=== PATIENT | male | born 1955 | race Caucasian/White ===

== ENCOUNTER 2016-02-19 15:44 | Emergency (ER) | payer MEDICARE, OTHER ==
[~2016-02-19] VITALS: Ht 185.4 cm; Wt 120.5 kg
[~2016-02-19 15:44] MED LIST: GLUCOPHAGE1000 MG PO; HCTZ 25MG TAB25 MG PO; HYDROCHLOROTHIA25 MG PO; HYDROCODONE/APAP; JANUMET 500 MG-1 TAB; JANUVIA 100MG100 MG PO; JANUVIA25 MG PO; LANTUS100 U/ML SQ; LIPITOR 10MG10 MG PO; LOPID 600M600 MG/TAB PO; METFORMIN1000 MG PO; NORVASC2.5 MG PO; PERFOROMIS20 MCG/2 M IH; PRAVASTATIN40 MG PO; PREDNISONE20 MG PO; PULMICORT R1 MG/2 ML IH; TOPROL XL 50MG50 MG PO; ZESTRIL40 MG PO; ZITHROMAX500 M2 PO
[2016-02-19 15:47] VITALS: BP 168/78; TEMP 98.1
[2016-02-19] MEDS ORDERED: 00186-0370-20 IH (16:12)
[2016-02-19 16:35] VITALS: PULSE 67
== END 2016-02-19 16:35 | disposition home or self-care (01) ==
LOC: COL.ER 15:44
DX: R22.2 Localized swelling, mass and lump, trunk (principal)

== ENCOUNTER 2017-07-13 11:34 | Emergency (ER) | payer MEDICARE, OTHER ==
[~2017-07-13] VITALS: Ht 182.9 cm; Wt 119.1 kg
[~2017-07-13 11:34] MED LIST changes: +00186-0370-20 IH
[2017-07-13 11:43] VITALS: TEMP 97
[2017-07-13 12:18] LABS: BASO # 0.1 (0.0-0.2); BASO % 0.4 % (0.0-2.0); EOS # 0.2 (0.0-0.7); EOS % 1.6 % (0-4.0); GRAN # 8.7 (1.4-6.5); GRAN % 72.9 % (42.2-75.2); HEMATOCRIT 39.2 % (42.0-52.0); HEMOGLOBIN 13.9 g/dl (13.5-18.0); LYMPH % 16.3 % (20.0-51.0); MEAN CELL VOLUME 89 fl (80.0-100.0); MEAN CORPUSCULAR HEMOGLOBIN 31 pg (27.0-31.0); MEAN CORPUSCULAR HGB CONC 36 g/dl (33.0-37.0); MEAN PLATELET VOLUME 9.6 fl (7.4-10.4); MONO % 8.5 % (1.7-9.3); PLATELET COUNT 255 K/mm3 (130-400); RED BLOOD COUNT 4.42 M/mm3 (4.20-5.60); REDCELL DISTRIBUTION WIDTH-CV 12.1 % (11.5-14.5)
[2017-07-13 12:25] LABS: INR 1.1 (0.8-3.0); PROTHROMBIN TIME 12.3 SECONDS (9.7-12.8)
[2017-07-13 12:38] LABS: ALBUMIN 3.9 gm/dL (3.5-5.0); BILIRUBIN,TOTAL 0.7 mg/dL (0.0-1.0); CALCIUM 9.5 mg/dL (8.4-10.2); CREATININE, serum 1.23 mg/dL (0.66-1.25); POTASSIUM 4.2 mmol/L (3.4-5.0); TOTAL PROTEIN 7.4 gm/dL (6.4-8.2)
[2017-07-13] MEDS ORDERED: LASIX 20MG TABL20 MG PO (12:41)
[2017-07-13] MEDS ORDERED: BASAGLAR K100 UNIT/1 SQ (12:43)
[2017-07-13] MEDS ORDERED: ASPIRIN 81M81 MG/TA2 PO (12:43)
[2017-07-13 12:49] LABS: TROPONIN-I 0.013 ng/mL (0.000-0.034)
[2017-07-13] MEDS ORDERED: CARDIZEM CD 18180 MG PO ×2 (13:56→14:23)
[2017-07-13] MEDS ORDERED: ELIQUIS 5MG PO ×2 (13:56→14:23)
[2017-07-13 14:29] VITALS: BP 122/84; PULSE 100
== END 2017-07-13 14:30 | disposition home or self-care (01) ==
LOC: COL.ER 11:34
PROVIDERS: Emergency Medicine
DX: I48.91 Unspecified atrial fibrillation (principal); J44.9 Chronic obstructive pulmonary disease, unspecified; I10 Essential (primary) hypertension; E78.5 Hyperlipidemia, unspecified; E11.9 Type 2 diabetes mellitus without complications; Z87.891 Personal history of nicotine dependence; Z79.82 Long term (current) use of aspirin; Z79.4 Long term (current) use of insulin

== ENCOUNTER 2017-08-10 07:26 | Day surgery (SDC) | payer MEDICARE, OTHER ==
[2017-08-10] VITALS (8 sets, daily range): BP systolic 103–139; BP diastolic 65–82; PULSE 57–72; TEMP 98.1
[~2017-08-10] VITALS: Ht 182.9 cm; Wt 118.8 kg
[~2017-08-10 07:26] MED LIST changes: +ASPIRIN 81M81 MG/TA2 PO; +BASAGLAR K100 UNIT/1 SQ; +CARDIZEM CD 18180 MG PO; +ELIQUIS 5MG PO; +LASIX 20MG TABL20 MG PO
[2017-08-10 07:50] LABS: INR 1.4 (0.8-3.0); PROTHROMBIN TIME 15.9 SECONDS (9.7-12.8)
[2017-08-10 07:51] LABS: POTASSIUM 5.1 mmol/L (3.4-5.0)
[2017-08-10 08:26] LABS: THYROID STIMULATING HORMONE 2.11 uIU/mL (0.465-4.680)
[2017-08-10] MEDS ORDERED: TIAZAC180 MG PO (09:13)
[2017-08-10] MEDS ORDERED: LASIX 20MG TABL20 MG PO (09:14)
[2017-08-10] MEDS ORDERED: ELIQUIS 5MG PO (09:16)
[2017-08-10] MEDS ORDERED: BASAGLAR K100 UNIT/1 SQ (09:18)
[2017-08-10] MEDS ORDERED: MULTAQ400 MG PO (09:34)
== END 2017-08-10 11:51 | disposition home or self-care (01) ==
LOC: COL.CAR 07:26
PROVIDERS: Internal Medicine Cardiovascular Disease
DX: I48.3 Typical atrial flutter (principal); I48.0 Paroxysmal atrial fibrillation; I10 Essential (primary) hypertension; E78.5 Hyperlipidemia, unspecified; Q23.1 Congenital insufficiency of aortic valve; I07.1 Rheumatic tricuspid insufficiency; E11.9 Type 2 diabetes mellitus without complications; G89.29 Other chronic pain; M54.9 Dorsalgia, unspecified; K21.9 Gastro-esophageal reflux disease without esophagitis; Z79.01 Long term (current) use of anticoagulants; Z79.4 Long term (current) use of insulin; Z87.891 Personal history of nicotine dependence
CPT/HCPCS: J2250; J3010; J7030

== ENCOUNTER 2018-06-27 06:47 | Day surgery (SDC) | payer MEDICARE, OTHER ==
[~2018-06-27] VITALS: Ht 183 cm; Wt 123.4 kg
[~2018-06-27 06:47] MED LIST changes: -LIPITOR 10MG10 MG PO; +LIPITOR 40MG TA40 MG PO; +MULTAQ400 MG PO; +TIAZAC180 MG PO
[2018-06-27 08:02] LABS: INR 1.4 (0.8-3.0)
[2018-06-27 08:09] LABS: POTASSIUM 3.6 mmol/L (3.4-5.0)
[2018-06-27] MEDS ORDERED: TOPROL XL 25MG25 MG PO (08:36)
[2018-06-27 08:41] VITALS: BP 179/114; PULSE 121; TEMP 98.2
[2018-06-27 08:44] LABS: THYROID STIMULATING HORMONE 3.5 uIU/mL (0.465-4.680)
[2018-06-27 08:59] VITALS: BP 131/99; PULSE 122
[2018-06-27 09:30] VITALS: BP 135/83; PULSE 85
[2018-06-27 09:45] VITALS: BP 130/68; PULSE 83
[2018-06-27 10:00] VITALS: BP 140/73; PULSE 82
[2018-06-27 10:15] VITALS: BP 126/76; PULSE 83
[2018-06-27] MEDS ORDERED: HYGROTON 2525 MG/TAB PO (10:56)
== END 2018-06-27 11:23 | disposition home or self-care (01) ==
LOC: COL.CAR 06:47
PROVIDERS: Internal Medicine Cardiovascular Disease
DX: I48.3 Typical atrial flutter (principal); I48.91 Unspecified atrial fibrillation; E11.9 Type 2 diabetes mellitus without complications; I10 Essential (primary) hypertension; G89.29 Other chronic pain; M54.9 Dorsalgia, unspecified; K21.9 Gastro-esophageal reflux disease without esophagitis; Z88.8 Allergy status to other drugs, medicaments and biological substances; Z88.1 Allergy status to other antibiotic agents; Z79.01 Long term (current) use of anticoagulants; Z79.4 Long term (current) use of insulin; Z87.891 Personal history of nicotine dependence; Z82.49 Family history of ischemic heart disease and other diseases of the circulatory system; Z80.9 Family history of malignant neoplasm, unspecified; E78.2 Mixed hyperlipidemia
CPT/HCPCS: J2704; J7030

== ENCOUNTER 2018-07-03 09:19 | Inpatient (IN) | payer MEDICARE, OTHER ==
[~2018-07-03 09:19] MED LIST changes: -ASPIRIN 81M81 MG/TA2 PO; +ASPIRIN E.C. 8181 MG PO; +HYGROTON 2525 MG/TAB PO; +TOPROL XL 25MG25 MG PO
[2018-07-03 09:52] VITALS: BP 130/74; PULSE 56; TEMP 98.3
[2018-07-03 11:04] LABS: BASO # 0.1 (0.0-0.2); BASO % 0.6 % (0.0-2.0); EOS # 0.3 (0.0-0.7); GRAN # 7.6 (1.4-6.5); GRAN % 72.6 % (42.2-75.2); HEMATOCRIT 40.2 % (42.0-52.0); HEMOGLOBIN 13.3 g/dl (13.5-18.0); LYMPH # 1.6 (1.2-3.4); LYMPH % 14.9 % (20.0-51.0); MEAN CELL VOLUME 93 fl (80.0-100.0); MEAN CORPUSCULAR HEMOGLOBIN 31 pg (27.0-31.0); MEAN CORPUSCULAR HGB CONC 33 g/dl (33.0-37.0); MEAN PLATELET VOLUME 10.5 fl (7.4-10.4); MONO # 0.9 (0.1-0.6); MONO % 8.4 % (1.7-9.3); PLATELET COUNT 275 K/mm3 (130-400); RED BLOOD COUNT 4.31 M/mm3 (4.20-5.60); REDCELL DISTRIBUTION WIDTH-CV 12.4 % (11.5-14.5)
[2018-07-03 11:14] LABS: INR 1.6 (0.8-3.0); PROTHROMBIN TIME 18.6 SECONDS (9.7-12.8)
[2018-07-03 11:20] LABS: ALBUMIN 3.8 gm/dL (3.5-5.0); BILIRUBIN,TOTAL 0.6 mg/dL (0.0-1.0); CALCIUM 8.9 mg/dL (8.4-10.2); CREATININE, serum 1.93 (0.66-1.25); MAGNESIUM 1.7 mg/dL (1.6-2.3); POTASSIUM 4.5 mmol/L (3.4-5.0); TOTAL PROTEIN 7.1 gm/dL (6.4-8.2)
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
[2018-07-03 15:23] VITALS: BP 174/94; PULSE 49; TEMP 98.1
--- NOTE | 2018-07-03 19:29 | NUR ---
Report given to oncoming shift. Went for bedside report and patient was observed to be laying on left side with eyes closed. Personal items and call light is within reach.
[2018-07-03 21:03] VITALS: BP 183/78; PULSE 51; TEMP 97.7
[2018-07-03 23:27] VITALS: BP 147/49; PULSE 55; TEMP 98
--- NOTE | 2018-07-03 23:45 | NUR ---
Patient assessed around 2029. Denies having pain and discomfort. Alert and oriented, and able to make needs known. Patient is completely blind in right eye, and can only see peripheral vision in left eye. Oriented to call light, bed controls, TV controls, etc. Telemetry intact. HRR. LS CTA. Denies SOB and dyspnea. LLE with 1+ edema. Junior hose to LLE. Old scarring to LLE, as well as old graft site to right forearm. Peripheral INT to left hand flushed. Site is patent, and without redness, warmth, swelling, and pain. Voices no needs or concerns at this time. Resting in bed with eyes closed. at bedside. Call light is within reach.
[2018-07-04 04:09] VITALS: BP 164/71; PULSE 63; TEMP 97.8
--- NOTE | 2018-07-04 05:07 | NUR ---
Patient has been resting in bed with eyes closed most of the night so far. Has voiced no needs or concerns. Call light is within reach.
[2018-07-04 07:22] LABS: BASO # 0.1 (0.0-0.2); BASO % 0.6 % (0.0-2.0); EOS # 0.4 (0.0-0.7); GRAN # 6.6 (1.4-6.5); GRAN % 72.1 % (42.2-75.2); HEMATOCRIT 38.6 % (42.0-52.0); HEMOGLOBIN 12.8 g/dl (13.5-18.0); LYMPH # 1.3 (1.2-3.4); MEAN CELL VOLUME 93 fl (80.0-100.0); MEAN CORPUSCULAR HEMOGLOBIN 31 pg (27.0-31.0); MEAN CORPUSCULAR HGB CONC 33 g/dl (33.0-37.0); MEAN PLATELET VOLUME 10.3 fl (7.4-10.4); MONO # 0.8 (0.1-0.6); MONO % 8.7 % (1.7-9.3); PLATELET COUNT 258 K/mm3 (130-400); RED BLOOD COUNT 4.16 M/mm3 (4.20-5.60); REDCELL DISTRIBUTION WIDTH-CV 12.4 % (11.5-14.5)
[2018-07-04 07:35] LABS: CALCIUM 8.5 mg/dL (8.4-10.2); CREATININE, serum 1.73 (0.66-1.25); MAGNESIUM 1.8 mg/dL (1.6-2.3); POTASSIUM 4.5 mmol/L (3.4-5.0)
--- NOTE | 2018-07-04 08:16 | NUR ---
Patient is sitting up on side of bed eating breakfast. Asked if he was having any pain and he stated no more than usual, did offer pain medication and he stated he does not take anything, just lets the stiffness and pain work itself out. No other needs verbalized when asked. Personal items and call light is within reach.
--- NOTE | 2018-07-04 09:37 | NUR ---
Initial visit; Patient thanked Wiper Blender for stopping and wishing him well and God's blessings.
[2018-07-04 12:36] VITALS: BP 198/96; PULSE 68; TEMP 98.5
--- NOTE | 2018-07-04 13:52 | NUR ---
Noted blood pressure to be 198/96, paged call to Dr. Haas's nurse to notify. New order noted for amlodipine.
--- NOTE | 2018-07-04 16:39 | NUR ---
SW met with patient to discuss discharge planning. Patient lives independently at home with his . Patient's PCP is Dr Rosales and he obtains prescriptions from [facility]. Patient has a cane at home but does not use it often and he does not use any home health services. Patient does not have a DPOA and is not interested in obtaining one at this time. SW does not anticipate any discharge needs.
[2018-07-04 16:44] VITALS: BP 173/158; PULSE 102; TEMP 97.6
[2018-07-04 16:52] VITALS: BP 168/94
--- NOTE | 2018-07-04 18:23 | NUR ---
Patient sitting up on couch, finished up supper. Denies having any new pain. Evening medication administered. Did request diet coke. Call light and personal items are within reach.
--- NOTE | 2018-07-04 19:13 | NUR ---
Called Dr. Mccray regarding blood pressure for this evening of 168/94 manually. He verbalized he was not concerned with the the pressure.
[2018-07-04 19:19] VITALS: BP 165/81; PULSE 67; TEMP 98.7
--- NOTE | 2018-07-04 21:10 | NUR ---
pt resting in bed A+Ox4. reports pain 2/10- denies needs for interventions. shift assessment complete. pt reports no needs at this time. call light inreach
[2018-07-04 23:39] VITALS: BP 170/70; PULSE 57; TEMP 98.6
--- NOTE | 2018-07-04 23:49 | NUR ---
pt O2 sat drops when sleeping to 84-89%- placed pt on 1L via NC. no c/o SOA. no needs at this time. call light in reach
[2018-07-05 04:23] VITALS: BP 165/68; PULSE 61; TEMP 98.3
--- NOTE | 2018-07-05 05:14 | NUR ---
PT RESTED IN BED DURING NIGHT. REPORTED PAIN TO BE MANAGABLE WITHOUT INTERVENTIONS. PT ON 1L VIA NC- D/T SAT DROPPING WHEN SLEEPING TO 80s. PT CONVERTED TO AFIB AT 0330- CARDIOLOGY NOTIFIED. NO NEEDS AT THIS TIME. CALL LIGHT IN REACH
[2018-07-05 07:03] LABS: BASO # 0.1 (0.0-0.2); BASO % 0.6 % (0.0-2.0); EOS # 0.3 (0.0-0.7); EOS % 3.4 % (0-4.0); GRAN # 7.2 (1.4-6.5); GRAN % 73.6 % (42.2-75.2); HEMATOCRIT 43.1 % (42.0-52.0); LYMPH # 1.4 (1.2-3.4); LYMPH % 14.4 % (20.0-51.0); MEAN CELL VOLUME 94 fl (80.0-100.0); MEAN CORPUSCULAR HEMOGLOBIN 30 pg (27.0-31.0); MEAN CORPUSCULAR HGB CONC 33 g/dl (33.0-37.0); MEAN PLATELET VOLUME 10.2 fl (7.4-10.4); MONO # 0.7 (0.1-0.6); MONO % 7.6 % (1.7-9.3); PLATELET COUNT 323 K/mm3 (130-400); REDCELL DISTRIBUTION WIDTH-CV 12.5 % (11.5-14.5)
--- NOTE | 2018-07-05 07:23 | NUR ---
report given to JAYLEEN Corrales. pt reports no needs
[2018-07-05 07:24] LABS: CALCIUM 9.1 mg/dL (8.4-10.2); CREATININE, serum 1.77 (0.66-1.25); MAGNESIUM 1.8 mg/dL (1.6-2.3)
[2018-07-05 08:30] VITALS: BP 175/84; PULSE 78; TEMP 98.5
[2018-07-05] MEDS ORDERED: BETAPACE 80MG80 MG PO (09:03)
[2018-07-05] MEDS ORDERED: NORVASC 10MG10 MG PO (09:04)
--- NOTE | 2018-07-05 09:06 | NUR ---
Patient sitting in bed upon entry. Patient is pleasant and cooperative with cares. Lung sounds clear, LLL diminished. Heart RRR. Denies chest pain, dizziness, SOB, N/V. radial pulses strong bilaterally. Patient blind in left eye and semi blind in right eye. Patient able to perform cares on own mostly. INT IV is patent. Dr. miller in to visit with patient. Patient is being discharged today. patient will call for ride. Denies other needs at this time. VSS. Call light within reach.
--- NOTE | 2018-07-05 11:44 | NUR ---
Patient discharging. Discharge instructions reviewed and discussed. Patient verbalizes understanding. All questions answered. LH INT IV discontinued, catheter tip intact, no complications. Denies other needs. Escorted out via wheelchair by ora Lewis.
== END 2018-07-05 11:48 | disposition home or self-care (01) | DRG 309 ==
LOC: MEDICAL 09:19
PROVIDERS: Nurse Practitioner; ADMIT Internal Medicine Cardiovascular Disease
DX: I48.0 Paroxysmal atrial fibrillation (principal); Q23.1 Congenital insufficiency of aortic valve; E11.9 Type 2 diabetes mellitus without complications; I48.92 Unspecified atrial flutter; I10 Essential (primary) hypertension; G89.29 Other chronic pain; E78.2 Mixed hyperlipidemia; M54.9 Dorsalgia, unspecified; K21.9 Gastro-esophageal reflux disease without esophagitis; H54.7 Unspecified visual loss; Z79.01 Long term (current) use of anticoagulants; Z79.4 Long term (current) use of insulin; Z87.891 Personal history of nicotine dependence
CPT/HCPCS: J1815

== ENCOUNTER 2018-08-01 11:55 | Inpatient (IN) | payer MEDICARE, OTHER ==
[~2018-08-01] VITALS: Ht 185.4 cm; Wt 128.8 kg
[2018-08-01] VITALS (482 sets, daily range): BP systolic 83–180; BP diastolic 45–105; PULSE 56–62; TEMP 98.8–99; O2SAT 69–100
[~2018-08-01 11:55] MED LIST changes: +BETAPACE 80MG80 MG PO; +NORVASC 10MG10 MG PO
[2018-08-01 12:24] LABS: HEMATOCRIT 45.3 % (42.0-52.0); HEMOGLOBIN 14.8 g/dl (13.5-18.0); MEAN CELL VOLUME 95 fl (80.0-100.0); MEAN CORPUSCULAR HEMOGLOBIN 31 pg (27.0-31.0); MEAN CORPUSCULAR HGB CONC 33 g/dl (33.0-37.0); MEAN PLATELET VOLUME 10.3 fl (7.4-10.4); PLATELET COUNT 385 K/mm3 (130-400); RED BLOOD COUNT 4.79 M/mm3 (4.20-5.60); REDCELL DISTRIBUTION WIDTH-CV 13.8 % (11.5-14.5)
[2018-08-01 12:26] LABS: INR 1.7 (0.8-3.0); PROTHROMBIN TIME 20.4 SECONDS (9.7-12.8)
[2018-08-01 12:32] LABS: ALBUMIN 3.8 gm/dL (3.5-5.0); BILIRUBIN,TOTAL 0.7 mg/dL (0.0-1.0); CALCIUM 8.6 mg/dL (8.4-10.2); CREATININE, serum 1.99 (0.66-1.25); POTASSIUM 5.1 mmol/L (3.4-5.0); TOTAL PROTEIN 7.4 gm/dL (6.4-8.2)
[2018-08-01 12:39] LABS: ARTERIAL BLD GAS O2 SATURATION 93.8 % (92-100); ARTERIAL BLD GAS TCO2 CT 34.6; ARTERIAL BLOOD GAS BASE EXCESS -1.3 (-2-2); ARTERIAL BLOOD GAS HCO3 31.5 meq/L (22-26)
[2018-08-01 12:41] LABS: ARTERIAL BLOOD GAS pH 7.12 (7.35-7.45)
[2018-08-01 12:42] LABS: ARTERIAL BLOOD GAS PCO2 99.2 mmHg (35-45)
[2018-08-01 12:44] LABS: TROPONIN-I 0.022 ng/mL (0.000-0.035)
--- NOTE | 2018-08-01 13:15 | NUR ---
SW was called to the ED for a code red. The pt's was in the ED waiting room. SW provided support to the . Pt to go to ICU05. There are no additional needs at this time.
--- NOTE | 2018-08-01 14:09 | NUR ---
Pt admitted to ICU bed 5 from ED. Pt arrived via stretcher and placed on telemetry monitor upon arrival to unit. Vitals stable upon arrival. Dr. Hendricks and Dr. Hung in unit for Pt arrival.
[2018-08-01 14:17] LABS: ARTERIAL BLD GAS O2 SATURATION 95.8 % (92-100); ARTERIAL BLD GAS TCO2 CT 26.2; ARTERIAL BLOOD GAS BASE EXCESS -2.5 (-2-2); ARTERIAL BLOOD GAS HCO3 24.6 meq/L (22-26); ARTERIAL BLOOD GAS PCO2 51.5 mmHg (35-45); ARTERIAL BLOOD GAS PO2 89.8 mmHg (80-100)
--- NOTE | 2018-08-01 14:23 | NUR ---
Versed discontinued per physician order. Switching to Propofol.
--- NOTE | 2018-08-01 14:24 | NUR ---
Initial visit; Patient brought to ICU Room. Athletics Director spoke with his and daughter and eventually introduced them to the Nurse Practitioner who took them to another room to explain patient's physical condition.
--- NOTE | 2018-08-01 15:00 | NUR ---
Admission assessment complete at this time. Plan of care reviewed at bedside with family. Pt responds to verbal stimuli easily and follows commands. Denies pain or any other discomfort. Additional time taken to address any other needs or concerns of family. Bed in low position, call light within reach. Will continue to monitor.
--- NOTE | 2018-08-01 15:07 | NUR ---
CHANEL met with the patient and his Santa to discuss a discharge plan. Due to the pt's condition Santa answered assessment questions. The pt lives in [place] with Santa. The pt has a cane he uses occasionally. The pt is independent with ADLs. The pt's PCP is Dr. Rosales and receives his medications from [facility]. Pt may require a medication voucher upon discharge. The pt does not have advanced directives in the EMR. CHANEL to revisit DPOA-HC once pt condition changes. CHANEL will continue to follow to assist with any discharge recommendations. [place]oca () cell #
[2018-08-01 16:23] LABS: ARTERIAL BLD GAS TCO2 CT 26.4; ARTERIAL BLOOD GAS BASE EXCESS 0.2 (-2-2); ARTERIAL BLOOD GAS HCO3 25.1 meq/L (22-26); ARTERIAL BLOOD GAS PCO2 41.6 mmHg (35-45); ARTERIAL BLOOD GAS PO2 71.8 mmHg (80-100)
--- NOTE | 2018-08-01 16:32 | NUR ---
Heparin gtt intiated per orders at this time. Max bolus of 10,000 units given per order. Gtt intiated at 2300 units/hr. Doses verifed with Snow Navarro RN.
[2018-08-01 16:36] LABS: PARTIAL THROMBOPLASTIN TIME 37.7 SECONDS (26.0-37.0)
--- NOTE | 2018-08-01 17:00 | NUR ---
Pt awakens easily to voice and follows all directions and commands. Pt recently intubated with recent sedation intiation. Multiple sedation changes have been performed prior to current settings. Pt is resting comfortably and is well below the RASS goal of -2 to -3. No further sedation vacation performed at this time. Will continue to monitor for sedation level changes and intervene accordingly per orders.
--- NOTE | 2018-08-01 17:48 | NUR ---
Heparin Xa elevated critically at 1.16. Holding gtt for two hours per protocol and will recheck hep Xa level at 194.
[2018-08-01] MEDS ORDERED: BETAPACE 80MG80 MG PO (18:53)
--- NOTE | 2018-08-01 19:15 | NUR ---
Bedside report received from JAYLEEN Saldaña. All lines and medications confirmed. Transfer of care at this time.
--- NOTE | 2018-08-01 19:15 | NUR ---
Bedside report given to JAYLEEN Cunningham.
--- NOTE | 2018-08-01 20:00 | NUR ---
Patient appears to resting comfortably on the ventilator. No signs of distress. Asked patient if he is having any pain, he shakes his head no. Patient opens eyes when asked and squeezes hands, following commands. Assessment complete. Patient's lungs are clear in the upper lobes with diminished bases. Ventilator tube placement checked. HR and rhythm are regular and bradycardic, Normal S1 and S2 heard. Bowel sounds are active x4. OG placement confirmed by auscultation and aspiration of brown gastric contents. Patient has +3 pitting edema in the lower extremities and +1 in the upper. Patient is producing a small amount of yellow cloudy urine. Sample to be collected. Patient's , Santa, is at the bedside. Discussed his condition with her and what numbers we are monitoring on the ventilator as well as the process for the sedation vacation in the morning with CPAP trial. She is understanding, but also emotional. Patient has no further needs at this time. Will continue to monitor. Call light within reach.
[2018-08-01 21:24] LABS: COLLECTION METHOD CATHETER
[2018-08-01 21:44] LABS: AMORPHOUS CRYSTAL Present /uL; MUCOUS Present /lpf; PH 5 (5-8); SQUAMOUS EPITHELIAL 0-2 /hpf; URINE APPEARANCE Turbid; URINE BACTERIA Rare /hpf; URINE BILIRUBIN Negative (NEGATIVE); URINE BLOOD 2+ (NEGATIVE); URINE COLOR Amber; URINE GLUCOSE 1+ (NEGATIVE); URINE KETONE Trace (NEGATIVE); URINE LEUKOCYTE ESTERASE Negative (NEGATIVE); URINE NITRATE Negative (NEGATIVE); URINE PROTEIN(semi-quant) 3+ (NEGATIVE); URINE RBC >50 /hpf; URINE UROBILINOGEN Negative (NEGATIVE)
[2018-08-01 21:57] LABS: PARTIAL THROMBOPLASTIN TIME 37.1 SECONDS (26.0-37.0)
--- NOTE | 2018-08-01 22:30 | NUR ---
Patient's O2 sats have been increasing on 60% FIO2, decreased to 55% at this time. O2 sat holding between 92-94%
[2018-08-02] VITALS (832 sets, daily range): BP systolic 103–147; BP diastolic 52–73; PULSE 54–70; TEMP 97.5–99; O2SAT 80–100
--- NOTE | 2018-08-02 | NUR ---
Patient sleeps between disturbances. Appears to be resting comfortably on the vent, no signs of distress. RT Holly has been titrating down the FIO2. Assessment complete. No changes from previous exam. Patient's vitals have remained stable, he still is bradycardic. No resdiual aspirated through OG. Placement confirmed. Patient shakes his head no when asked if he is in any pain. Patient wants his feet elevated, pillow placed under feet with heels floated. Patient's urine output has started to decrease. Will notify EICU. Patient has no further needs at this time. Will continue to monitor. Call light within reach.
--- NOTE | 2018-08-02 04:00 | NUR ---
Patient continues to rest peacefully on the vent. Patient continues to deny any pain. Vitals have remained stable. Patient answers questions to the best of his abilities to include spelling out words with his hand. Assessment complete. No changes from previous exams. Patient has no further needs at this time. Will continue to monitor. Call light within reach.
[2018-08-02 04:02] LABS: HEMOGLOBIN 12.4 g/dl (13.5-18.0); MEAN CELL VOLUME 94 fl (80.0-100.0); MEAN CORPUSCULAR HEMOGLOBIN 31 pg (27.0-31.0); MEAN CORPUSCULAR HGB CONC 33 g/dl (33.0-37.0); MEAN PLATELET VOLUME 9.8 fl (7.4-10.4); PLATELET COUNT 266 K/mm3 (130-400); RED BLOOD COUNT 4.05 M/mm3 (4.20-5.60); REDCELL DISTRIBUTION WIDTH-CV 13.7 % (11.5-14.5)
[2018-08-02 04:11] LABS: INR 1.4 (0.8-3.0); PROTHROMBIN TIME 16.1 SECONDS (9.7-12.8)
[2018-08-02 04:14] LABS: BILIRUBIN,TOTAL 0.6 mg/dL (0.0-1.0); CALCIUM 8.3 mg/dL (8.4-10.2); CREATININE, serum 2.77 (0.66-1.25); MAGNESIUM 1.9 mg/dL (1.6-2.3); PHOSPHOROUS 4.8 mg/dL (2.5-4.5); POTASSIUM 4.5 mmol/L (3.4-5.0); TOTAL PROTEIN 5.9 gm/dL (6.4-8.2)
[2018-08-02 04:14] LABS: ARTERIAL BLD GAS O2 SATURATION 90.4 % (92-100); ARTERIAL BLD GAS TCO2 CT 22.1; ARTERIAL BLOOD GAS BASE EXCESS -3.2 (-2-2); ARTERIAL BLOOD GAS PCO2 35.1 mmHg (35-45); ARTERIAL BLOOD GAS PO2 60.3 mmHg (80-100)
[2018-08-02 04:19] LABS: BAND 7 % (0-10); LYMPHOCYTE 5 % (20.0-51.0); NEUTROPHILS 86 % (42.0-75.2); PLATELET ESTIMATE NORMAL (NORMAL)
--- NOTE | 2018-08-02 05:00 | NUR ---
Sedation vacation started at this time. Fentanyl and propofol doses cut in half.
--- NOTE | 2018-08-02 05:25 | NUR ---
WEANING TRAIL ON PS 10, PEEP 5, FIO2 45% starteed @ 0515. VT 523, RR14, RBI25, PEAK PRESSURE 16, HR65, GPJ152% PAITIENT IS RESTING COMFORTABLY AND HAS NO SIGNS OF DISTRESS.
--- NOTE | 2018-08-02 06:55 | NUR ---
Patient's , Santa, calls at this time for an update. Provided patient's status and how he has improved over night. She says she will be here between [id number]. Let patient know when she plans on being here.
--- NOTE | 2018-08-02 07:10 | NUR ---
Bedside report given to JAYLEEN Saldaña and JAYLEEN Trujillo. All lines and medications reviewed. Transfer of care at this time.
--- NOTE | 2018-08-02 08:00 | NUR ---
Shift assessment complete at this time. Plan of care reviewed at bedside with patient. Additional time taken to address any other needs or concerns. Vitals stable at this time. Pt alert and calm on ventilator and minimal sedation. Currently in pressure support CPAP setting. Follows commands and direction easily. Denies pain or any other discomfort. Bed in low position, call light within reach, will continue to monitor.
--- NOTE | 2018-08-02 08:50 | NUR ---
Propofol and Fentanyl gtts stopped per direction of Dr. Hendricks for potential extubation.
[2018-08-02 09:27] LABS: ARTERIAL BLD GAS O2 SATURATION 92.7 % (92-100); ARTERIAL BLD GAS TCO2 CT 20.3; ARTERIAL BLOOD GAS BASE EXCESS -6.5 (-2-2); ARTERIAL BLOOD GAS HCO3 19.1 meq/L (22-26); ARTERIAL BLOOD GAS PCO2 38.6 mmHg (35-45); ARTERIAL BLOOD GAS pH 7.31 (7.35-7.45)
--- NOTE | 2018-08-02 09:48 | NUR ---
Pt extubated at this time to Bi-Pap. Pt tolerated extubation well with no complaints or concerns raised. Will continue to monitor.
--- NOTE | 2018-08-02 11:29 | NUR ---
SW followed up with patient about DPOA status now that he is intubated. Patient reports that he does not have anything in writing they in the process of working on it. Patient states that his Santa is to make decisions on his behalf. This is verbal acknowledgment
--- NOTE | 2018-08-02 11:48 | NUR ---
EXTUBATED AT 10:00. PER DR. BENNETT ORDER. SUCTIONED PRE AND POST, BILATERAL BREATH SOUNDS CLEAR AND EQUAL. NO STRIDOR. NO SIGNS OF DISTRESS. PT PLACED ON BIPAP PER MD ORDER.
--- NOTE | 2018-08-02 12:00 | NUR ---
Shift reassessment complete at this time. Changes from previous assessment noted in charting. Vitals stable at this time. Pt denies pain or any other discomfort. Bed in low position, call light within reach, will continue to monitor.
[2018-08-02 12:36] LABS: ARTERIAL BLD GAS O2 SATURATION 94.5 % (92-100); ARTERIAL BLD GAS TCO2 CT 23.1; ARTERIAL BLOOD GAS BASE EXCESS -4.2 (-2-2); ARTERIAL BLOOD GAS HCO3 21.8 meq/L (22-26); ARTERIAL BLOOD GAS PCO2 43.5 mmHg (35-45); ARTERIAL BLOOD GAS PO2 81.9 mmHg (80-100); ARTERIAL BLOOD GAS pH 7.32 (7.35-7.45)
--- NOTE | 2018-08-02 12:50 | NUR ---
Hep Xa 0.85. Holding gtt for one hour and resuming at 200 units/hr decreased rate. Recheck Xa 6 hours after restart.
--- NOTE | 2018-08-02 16:00 | NUR ---
Shift reassessment complete at this time. No changes from previous assessment. Vitals stable at this time. Pt denies pain or any other discomfort. Bed in low position, call light within reach, will continue to monitor.
--- NOTE | 2018-08-02 19:41 | NUR ---
Bedside report given to JAYLEEN Pickett.
--- NOTE | 2018-08-02 23:37 | NUR ---
Patient assessment completed and charted at this time, please see documentation for details. Patient resting in bed, at bedside. All questions and concerns addressed at this time, will continue to monitor.
[2018-08-03] VITALS (515 sets, daily range): BP systolic 117–138; BP diastolic 59–75; PULSE 55–68; TEMP 97.4–97.8; O2SAT 76–100
[2018-08-03 04:10] LABS: BASO % 0.1 % (0.0-2.0); GRAN # 14.8 (1.4-6.5); GRAN % 92.8 % (42.2-75.2); HEMATOCRIT 38.5 % (42.0-52.0); HEMOGLOBIN 12.5 g/dl (13.5-18.0); LYMPH # 0.4 (1.2-3.4); LYMPH % 2.6 % (20.0-51.0); MEAN CELL VOLUME 95 fl (80.0-100.0); MEAN CORPUSCULAR HEMOGLOBIN 31 pg (27.0-31.0); MEAN CORPUSCULAR HGB CONC 33 g/dl (33.0-37.0); MONO # 0.6 (0.1-0.6); MONO % 3.9 % (1.7-9.3); PLATELET COUNT 308 K/mm3 (130-400); RED BLOOD COUNT 4.06 M/mm3 (4.20-5.60)
[2018-08-03 04:14] LABS: INR 1.2 (0.8-3.0); PROTHROMBIN TIME 14.6 SECONDS (9.7-12.8)
[2018-08-03 04:21] LABS: ALBUMIN 3.2 gm/dL (3.5-5.0); BILIRUBIN,TOTAL 0.4 mg/dL (0.0-1.0); CALCIUM 7.9 mg/dL (8.4-10.2); CREATININE, serum 3.24 (0.66-1.25); MAGNESIUM 2.1 mg/dL (1.6-2.3); PHOSPHOROUS 5.4 mg/dL (2.5-4.5); POTASSIUM 5.2 mmol/L (3.4-5.0); TOTAL PROTEIN 6.1 gm/dL (6.4-8.2)
[2018-08-03 04:32] LABS: TROPONIN-I 0.012 ng/mL (0.000-0.035)
[2018-08-03 05:33] LABS: ARTERIAL BLOOD GAS BASE EXCESS -5.4 (-2-2); ARTERIAL BLOOD GAS HCO3 20.7 meq/L (22-26); ARTERIAL BLOOD GAS PCO2 42.6 mmHg (35-45); ARTERIAL BLOOD GAS PO2 103.2 mmHg (80-100)
--- NOTE | 2018-08-03 07:10 | NUR ---
Report received from Piyush CLEMENS and care resumed.
--- NOTE | 2018-08-03 09:00 | NUR ---
Dr Tinoco in to see pt at this time.
--- NOTE | 2018-08-03 12:42 | NUR ---
Report called to Moustapha CLEMENS and patient taken by wheelchair with chart and belongings to room 318.
--- NOTE | 2018-08-03 13:00 | NUR ---
Patient arrived to room 318 by wheelchair from ICU at this time, he is alert/ and oriented, denies pain, blood sugar was checked and insulin givn prior to coming to the Medical floor, his lunch is ordered, vital signs stable, denies any needs at this time, call light in reach
--- NOTE | 2018-08-03 13:08 | NUR ---
Patient's called to report stated that due to his blindness he can not see the call button and needed to use the rest room. SW contacted patient's nurse to inform them. 's phone number is [phone] Santa.
[2018-08-03 14:10] LABS: HIV QUANTITATIVE VIRAL LOAD Undetected (())
--- NOTE | 2018-08-03 19:13 | NUR ---
Pt resting in bed. Family at bedside. No distress noted. Respirations even and unlabored. Lungs clear to auscultation, bases diminished bilaterally. Pt denies SOB. Pt is not wearing his O2. Spo2 is 82% on RA. O2 @5L reapplied. Spo2 is 93% on O2@5L. Pt reports generalized pain that he states he "lives with all the time". Edema noted to BLE-2+. Pt is A&O. Pt is partially blind but is able to see some shapes and shadows. No needs noted. Will continue to monitor.
--- NOTE | 2018-08-03 23:20 | NUR ---
RT at bedside to apply BiPAP for sleep. Pt denies needs. Reglan given via PICC line. PICC gives good blood return in both ports and flushing well.
[2018-08-04 04:02] VITALS: BP 152/70; PULSE 83; TEMP 97.4
--- NOTE | 2018-08-04 05:20 | NUR ---
AM labs drawn via patients PICC line. PICC has great blood return. Pt has been awake for approximately 1 hour. He has no complaints this AM.
[2018-08-04 06:47] LABS: BASO % 0.1 % (0.0-2.0); GRAN # 14.7 (1.4-6.5); GRAN % 94.6 % (42.2-75.2); HEMATOCRIT 38.1 % (42.0-52.0); HEMOGLOBIN 12.3 g/dl (13.5-18.0); LYMPH # 0.3 (1.2-3.4); LYMPH % 1.7 % (20.0-51.0); MEAN CELL VOLUME 95 fl (80.0-100.0); MEAN CORPUSCULAR HEMOGLOBIN 31 pg (27.0-31.0); MEAN CORPUSCULAR HGB CONC 32 g/dl (33.0-37.0); MEAN PLATELET VOLUME 10.3 fl (7.4-10.4); MONO # 0.5 (0.1-0.6); PLATELET COUNT 304 K/mm3 (130-400); RED BLOOD COUNT 4.02 M/mm3 (4.20-5.60); REDCELL DISTRIBUTION WIDTH-CV 13.8 % (11.5-14.5)
[2018-08-04 06:55] LABS: INR 1.1 (0.8-3.0); PROTHROMBIN TIME 12.8 SECONDS (9.7-12.8)
[2018-08-04 07:00] LABS: ALBUMIN 3.2 gm/dL (3.5-5.0); BILIRUBIN,TOTAL 0.4 mg/dL (0.0-1.0); CALCIUM 7.8 mg/dL (8.4-10.2); CREATININE, serum 3.39 (0.66-1.25); PHOSPHOROUS 6.5 mg/dL (2.5-4.5); POTASSIUM 5.1 mmol/L (3.4-5.0)
[2018-08-04 08:57] LABS: ARTERIAL BLD GAS TCO2 CT 21.1; ARTERIAL BLOOD GAS BASE EXCESS -6.9 (-2-2); ARTERIAL BLOOD GAS HCO3 19.8 meq/L (22-26); ARTERIAL BLOOD GAS PCO2 43.8 mmHg (35-45); ARTERIAL BLOOD GAS PO2 83.7 mmHg (80-100); ARTERIAL BLOOD GAS pH 7.27 (7.35-7.45)
[2018-08-04 09:04] VITALS: BP 138/64; PULSE 70; TEMP 98.4
[2018-08-04 11:14] VITALS: BP 139/63; PULSE 69; TEMP 97.9
[2018-08-04 16:04] VITALS: BP 148/60; PULSE 74; TEMP 97.5
[2018-08-04 20:04] VITALS: BP 147/67; PULSE 76; TEMP 97.4
--- NOTE | 2018-08-04 20:30 | NUR ---
Pt sitting on edge of bed visiting with staff. Voices no c/o pain, SOA. LLE with darrick hose on and with 3+ edema. RLE with 1+ edema. PICC line intact to upper R arm. O2 on at 4L/NC. Call light withn reach.
[2018-08-04 23:24] VITALS: BP 140/59; PULSE 67; TEMP 98.1
[2018-08-05 00:12] VITALS: BP 140/59; PULSE 67; TEMP 98.1
--- NOTE | 2018-08-05 05:00 | NUR ---
Patient resting in bed. Denies needs. Call light in reach.
[2018-08-05 06:00] LABS: HEMATOCRIT 37.3 % (42.0-52.0); HEMOGLOBIN 12.2 g/dl (13.5-18.0); MEAN CELL VOLUME 94 fl (80.0-100.0); MEAN CORPUSCULAR HEMOGLOBIN 31 pg (27.0-31.0); MEAN CORPUSCULAR HGB CONC 33 g/dl (33.0-37.0); MEAN PLATELET VOLUME 10.2 fl (7.4-10.4); PLATELET COUNT 276 K/mm3 (130-400); RED BLOOD COUNT 3.95 M/mm3 (4.20-5.60); REDCELL DISTRIBUTION WIDTH-CV 13.7 % (11.5-14.5)
[2018-08-05 06:07] LABS: CALCIUM 7.9 mg/dL (8.4-10.2); CREATININE, serum 3.27 (0.66-1.25); POTASSIUM 5.5 mmol/L (3.4-5.0)
[2018-08-05 06:52] LABS: BAND 1 % (0-10); LYMPHOCYTE 3 % (20.0-51.0); NEUTROPHILS 94 % (42.0-75.2)
[2018-08-05 06:55] LABS: PLATELET ESTIMATE NORMAL (NORMAL)
--- NOTE | 2018-08-05 07:43 | NUR ---
Pt had BS of 402, Janet notified and insulin given. Rest of night uneventful. Report given to JAYLEEN Lovett.
--- NOTE | 2018-08-05 08:00 | NUR ---
PATIENT IS A&O AND SITTING AT BEDSIDE. PATIENT IS BLIND, BREAKFAST TRAY ORDERED FOR HIM. PATIENT DENIES SOB OR CHEST PAIN UPON ASSESSMENT. 02 @ 1L PER NC WITH SATS IN 90'S. PATIENT RECENTLY TOOK OFF HIS BI-PAP FROM LAST NIGHT. HR IN 50-60'S ON TELE. HX OF PACER. LUNG HODGE DEMINISHED. NOTED HIGH BS LIKELY DUE TO SOLUMEDROL. AM BS OF 305, SSI GIVEN. AM MEDS GIVEN. HEAD TO TOE ASSESSMENT COMPLETE. NO OTHER NEEDS AT THIS TIME.
[2018-08-05 08:45] VITALS: BP 150/85; PULSE 63; TEMP 97.4
[2018-08-05 11:06] VITALS: BP 152/69; PULSE 69; TEMP 97.5
--- NOTE | 2018-08-05 15:30 | NUR ---
PATIENT AMBULATING IN HALLWAYS WITH PT. SEE PT NOTES.
[2018-08-05 16:01] VITALS: BP 149/70; PULSE 74; TEMP 97.9
--- NOTE | 2018-08-05 17:38 | NUR ---
Home health is being recommended for the pt. CHANEL provided a Medicare.gov list of agencies that serve the [facility]. The pt would like to discuss the list with his , Santa. CHANEL will continue to follow.
[2018-08-05 19:55] VITALS: BP 154/72; PULSE 82; TEMP 97.2
--- NOTE | 2018-08-05 21:43 | NUR ---
PT AWAKE AND SITTING ON EDGE OF BED. O2 AT 4L/NC. DENIES PAIN, SOA. PICC LINES FLUSHED. LLE WITH MEL HOSE ON AND 2-3+ EDEMA. RLE WITH 1+ EDEMA. TELE ON WITH HR 70'S.
[2018-08-06 00:13] LABS: CREATININE, serum 2.98 (0.66-1.25)
[2018-08-06 00:15] LABS: FRACTIONAL EXCRETION OF NA+ 1.7 %
[2018-08-06 04:33] VITALS: BP 135/60; PULSE 70; TEMP 97.5
--- NOTE | 2018-08-06 06:04 | NUR ---
PT AMBULATES TO BR WITH MINIMAL ASSIST. MODERATE BM THIS AM. BACK TO BED. WEIGHT ON BEDSCALE 128.8KG. VISITING WITH ON PHONE. DENIES PAIN, SOA. CALL LIGHT WITHIN REACH. WILL CONTINUE TO MONITOR.
[2018-08-06 06:05] LABS: BASO % 0.1 % (0.0-2.0); GRAN # 11.6 (1.4-6.5); GRAN % 83.4 % (42.2-75.2); HEMOGLOBIN 11.7 g/dl (13.5-18.0); LYMPH # 0.9 (1.2-3.4); LYMPH % 6.1 % (20.0-51.0); MEAN CELL VOLUME 95 fl (80.0-100.0); MEAN CORPUSCULAR HEMOGLOBIN 31 pg (27.0-31.0); MEAN CORPUSCULAR HGB CONC 32 g/dl (33.0-37.0); MEAN PLATELET VOLUME 10.2 fl (7.4-10.4); MONO # 1.4 (0.1-0.6); MONO % 9.8 % (1.7-9.3); PLATELET COUNT 239 K/mm3 (130-400); RED BLOOD COUNT 3.84 M/mm3 (4.20-5.60); REDCELL DISTRIBUTION WIDTH-CV 13.8 % (11.5-14.5)
[2018-08-06 06:20] LABS: HEMATOCRIT 36.6 % (42.0-52.0)
[2018-08-06 06:22] LABS: CREATININE, serum 2.86 (0.66-1.25); POTASSIUM 5.1 mmol/L (3.4-5.0)
--- NOTE | 2018-08-06 06:40 | NUR ---
sitting up on side of bed, bedside shift report received from JAYLEEN Simons, breakfast ordered
--- NOTE | 2018-08-06 06:55 | NUR ---
Report given to JAYLEEN Spring
[2018-08-06 08:24] VITALS: BP 146/66; PULSE 75; TEMP 98.3
--- NOTE | 2018-08-06 08:25 | NUR ---
sitting up and has had breakfast and tolerated well, full assessment completed, see interventions for further info, Mellissa RN with Dr Mar in to see patient
--- NOTE | 2018-08-06 10:24 | NUR ---
ambulating in bhatia with physical therapy
--- NOTE | 2018-08-06 12:00 | NUR ---
appears to be sleeping, in bed with eyes closed, resp quiet and easy
[2018-08-06 12:34] VITALS: BP 159/74; PULSE 74; TEMP 98.1
--- NOTE | 2018-08-06 13:15 | NUR ---
sitting up on side of bed ready for lunch, denies needs
--- NOTE | 2018-08-06 14:00 | NUR ---
occupational therapy in to assist him with taking a shower
--- NOTE | 2018-08-06 14:12 | NUR ---
SW followed up [facility] patient about home health choice. Patient reports his has not been able to review the resource list. SW will follow up later.
--- NOTE | 2018-08-06 14:40 | NUR ---
ambulating in bhatia with physical theapy
--- NOTE | 2018-08-06 15:31 | NUR ---
EKG completed and he is now ready to take a nap
[2018-08-06 16:50] VITALS: BP 155/81; PULSE 65; TEMP 98.4
--- NOTE | 2018-08-06 17:08 | NUR ---
appears to be sleeping, in bed with eyes closed, resp quiet and easy
--- NOTE | 2018-08-06 17:50 | NUR ---
awakened and assisted him with ordering supper, denies other needs
--- NOTE | 2018-08-06 18:57 | NUR ---
bedside shift report given to JAYLEEN Simons
[2018-08-06 19:27] VITALS: BP 158/71; PULSE 83; TEMP 97.1
--- NOTE | 2018-08-06 22:00 | NUR ---
Sitting at bedside. Assessment complete. Right upper lobe wheezing with inspiration, left lower lobe diminshed otherwise clear. Heart sounds normal. Bowels active x4. Generalized edema throughout +1 with bilateral lower extremity +2. Denies pain at this time. PICC line flushes without complications. Call light in reach.
[2018-08-07] VITALS (7 sets, daily range): BP systolic 150–168; BP diastolic 60–75; PULSE 64–69; TEMP 97.8–98.2
--- NOTE | 2018-08-07 01:57 | NUR ---
Resting in bed. Denies needs. Call light in reach.
[2018-08-07 06:17] LABS: BASO % 0.1 % (0.0-2.0); EOS # 0.1 (0.0-0.7); EOS % 0.4 % (0-4.0); GRAN # 10.6 (1.4-6.5); GRAN % 83.4 % (42.2-75.2); HEMOGLOBIN 11.6 g/dl (13.5-18.0); LYMPH # 0.7 (1.2-3.4); LYMPH % 5.7 % (20.0-51.0); MEAN CELL VOLUME 96 fl (80.0-100.0); MEAN CORPUSCULAR HEMOGLOBIN 30 pg (27.0-31.0); MEAN CORPUSCULAR HGB CONC 31 g/dl (33.0-37.0); MEAN PLATELET VOLUME 10.4 fl (7.4-10.4); MONO # 1.3 (0.1-0.6); PLATELET COUNT 242 K/mm3 (130-400); RED BLOOD COUNT 3.85 M/mm3 (4.20-5.60)
[2018-08-07 06:36] LABS: CALCIUM 8.2 mg/dL (8.4-10.2); CREATININE, serum 2.65 (0.66-1.25)
--- NOTE | 2018-08-07 07:50 | NUR ---
Pt alert and oriented. Pt resting in bed. Pt denies pain or SOB. Pt remains on 3L oxygen and titrated down to 2L because saturation was 97%. Pt am assessment completed. Pt denies chest pain. Pt has call light in reach. Pt PICC to right upper arm no redness or infiltration noted.
--- NOTE | 2018-08-07 07:52 | NUR ---
Patient had uneventful night. Resting in bed this AM. Denies needs. Report given to JAYLEEN Lovett
--- NOTE | 2018-08-07 09:45 | NUR ---
PICC intact right upper arm. With sterile technique right upper arm PICC dressing change done with insertion site cleansed with ChloraPrep 1, chlorhexidine impregnated disc applied, skin prep, StatLock, and Tegaderm applied. No signs or symptoms of IV complications noted. No concerns voiced. Arm wrapped with Maxwell to protect catheter.
[2018-08-07] MEDS ORDERED: IPRATROPIUM BROM3 M1 IH (16:21)
[2018-08-07] MEDS ORDERED: ELIQUIS 2.5 PO (16:21)
[2018-08-07] MEDS ORDERED: PACERONE400 MG PO (16:22)
[2018-08-07] MEDS ORDERED: LASIX 40MG TABL40 MG PO (16:23)
[2018-08-07] MEDS ORDERED: NOVOLOG 100U100 U/M1 SQ (16:25)
[2018-08-07] MEDS ORDERED: LEVEMIR FLEX100 U/ML SQ (16:25)
[2018-08-07] MEDS ORDERED: PREDNISONE10 MG PO (16:38)
--- NOTE | 2018-08-07 17:28 | NUR ---
The patient qualified for home oxygen. CHANEL met with the patient to discuss DME options and to follow up on home health preference. The patient requested that CHANEL contact his for preference on DME company. CHANEL contacted his and she chose [employer]. CHANEL informed the patient and he was agreeable to pursue with [facility] [facility]. The patient is blinde and gave CHANEL his verbal consent. CHANEL provided him with a copy. CHANEL contacted and faxed the oxygen order to Yareli at [facility] [employer]. Yareli reports that the patient's insurance may not pay, due to him not having a chronic diagnoses. CHANEL informed the patient and he reports he would still like to pursue. [facility] delivered a portable oxygen tank to the patient's room. CHANEL then discussed home health. The patient reports that he would prefer outpatient therapy and would prefer to set up his own appointment. CHANEL informed the patient's PA. The patient is to be provided with a script for PT/OT. The patient is to discharge back home with his today, 08/07. CHANEL presented and explained the IM form to the patient. The patient gave CHANEL his verbal consent. A copy was provided to the patient. No additional needs at this time.
--- NOTE | 2018-08-07 18:00 | NUR ---
Pt given discharge orders and reviewed with pt and spouse discharge medications and orders. Pt spouse asked to clarify basaglar insulin if could be used instead of ordered levemir and med clarified by Alessandra PRABHAKAR and pt able to substitute at same dosage as ordered Levemir. Pt PICC removed by Moustapha CLEMENS and education provided on post PICC removal and care and drsg intact. Pt denies needs at this time. Pt has call light in reach.
--- NOTE | 2018-08-07 19:08 | NUR ---
Connie gave pt and spouse education on portable unit in room before discharge and this nurse called Leroy and let him know when pt was leaving so he could meet them at home to go over home concentrator unit.
== END 2018-08-07 18:30 | disposition home or self-care (01) | DRG 208 ==
LOC: COL.ER 11:55 → ICU 12:56 → MEDICAL 08-03 12:25
PROVIDERS: Emergency Medicine; Hospitalist; Internal Medicine Critical Care Medicine; Nurse Practitioner Family; Physician Assistant; ADMIT Internal Medicine
PROC: 5A1935Z Respiratory Ventilation, Less than 24 Consecutive Hours (ICD-10-PCS; principal; 2018-08-01)
PROC: 0BH17EZ Insertion of Endotracheal Airway into Trachea, Via Natural or Artificial Opening (ICD-10-PCS; 2018-08-01)
PROC: 02HV33Z Insertion of Infusion Device into Superior Vena Cava, Percutaneous Approach (ICD-10-PCS; 2018-08-01)
DX: J96.01 Acute respiratory failure with hypoxia (principal); A41.9 Sepsis, unspecified organism; R65.20 Severe sepsis without septic shock; G93.40 Encephalopathy, unspecified; N17.9 Acute kidney failure, unspecified; J96.02 Acute respiratory failure with hypercapnia; E11.22 Type 2 diabetes mellitus with diabetic chronic kidney disease; I12.9 Hypertensive chronic kidney disease with stage 1 through stage 4 chronic kidney disease, or unspecified chronic kidney disease; Z79.84 Long term (current) use of oral hypoglycemic drugs; Z79.4 Long term (current) use of insulin; E78.5 Hyperlipidemia, unspecified; E66.9 Obesity, unspecified; Z68.37 Body mass index [BMI] 37.0-37.9, adult; I48.91 Unspecified atrial fibrillation; Z79.01 Long term (current) use of anticoagulants; F17.290 Nicotine dependence, other tobacco product, uncomplicated; Z88.1 Allergy status to other antibiotic agents; Z88.8 Allergy status to other drugs, medicaments and biological substances; E11.21 Type 2 diabetes mellitus with diabetic nephropathy; N18.3 Chronic kidney disease, stage 3 (moderate); F10.10 Alcohol abuse, uncomplicated; J44.9 Chronic obstructive pulmonary disease, unspecified; G47.33 Obstructive sleep apnea (adult) (pediatric)
CPT/HCPCS: 99222; 99232-AI; 99233-AI; 99239; C1751; J0171; J0692; J1644; J1815; J1940; J2250; J2543; J2704; J2920; J3010; J3370; J7030; J7040; J7060; J7512

== ENCOUNTER 2018-08-13 19:39 | Emergency (ER) | payer MEDICARE, OTHER ==
[~2018-08-13] VITALS: Ht 182.9 cm; Wt 125.0 kg
[~2018-08-13 19:39] MED LIST changes: +ELIQUIS 2.5 PO; +IPRATROPIUM BROM3 M1 IH; +LASIX 40MG TABL40 MG PO; +LEVEMIR FLEX100 U/ML SQ; +NOVOLOG 100U100 U/M1 SQ; +PACERONE400 MG PO; +PREDNISONE10 MG PO
[2018-08-13 19:51] VITALS: TEMP 99.6
[2018-08-13 20:43] LABS: BASO % 0.2 % (0.0-2.0); EOS % 0.2 % (0-4.0); GRAN # 10.6 (1.4-6.5); GRAN % 86.6 % (42.2-75.2); HEMOGLOBIN 11.1 g/dl (13.5-18.0); LYMPH # 0.8 (1.2-3.4); LYMPH % 6.1 % (20.0-51.0); MEAN CELL VOLUME 95 fl (80.0-100.0); MEAN CORPUSCULAR HEMOGLOBIN 30 pg (27.0-31.0); MEAN CORPUSCULAR HGB CONC 32 g/dl (33.0-37.0); MONO # 0.8 (0.1-0.6); MONO % 6.2 % (1.7-9.3); PLATELET COUNT 230 K/mm3 (130-400); RED BLOOD COUNT 3.69 M/mm3 (4.20-5.60); REDCELL DISTRIBUTION WIDTH-CV 13.1 % (11.5-14.5)
[2018-08-13 20:47] LABS: HEMATOCRIT 34.9 % (42.0-52.0)
[2018-08-13 20:53] LABS: ALBUMIN 3.1 gm/dL (3.5-5.0); BILIRUBIN,TOTAL 0.4 mg/dL (0.0-1.0); CALCIUM 8.5 mg/dL (8.4-10.2); CREATININE, serum 2.43 (0.66-1.25); POTASSIUM 5.6 mmol/L (3.4-5.0); TOTAL PROTEIN 5.6 gm/dL (6.4-8.2)
[2018-08-13 21:24] VITALS: BP 141/75; PULSE 66
== END 2018-08-13 21:24 | disposition home or self-care (01) ==
LOC: COL.ER 19:39
PROVIDERS: Family Medicine
DX: E87.5 Hyperkalemia (principal); I48.91 Unspecified atrial fibrillation; E11.9 Type 2 diabetes mellitus without complications; I10 Essential (primary) hypertension; E78.5 Hyperlipidemia, unspecified; G47.33 Obstructive sleep apnea (adult) (pediatric); E66.9 Obesity, unspecified; J44.9 Chronic obstructive pulmonary disease, unspecified; Z90.49 Acquired absence of other specified parts of digestive tract; Z87.891 Personal history of nicotine dependence; Z99.81 Dependence on supplemental oxygen

== ENCOUNTER → 2019-03-12 | Outpatient (CLI) | payer MEDICARE, OTHER ==
[~2019-03-12] MED LIST changes: +CEPHALEXIN500 M1 PO; +CORDARONE200 MG/TAB PO; +FLEXERIL 1010 MG/TAB PO; +HYTRIN 1MG C1 MG/CAP PO; +K-DUR20 MEQ PO; +LANTUS SOLOS100 U/ML SQ; +NORCO 325 MG-51 TAB PO; +NORVASC 5MG5 MG/TAB PO; +ZAROXOLYN 2.52.5 MG PO
== END ==
LOC: MHCPAIN 08:26
DX: M54.16 Radiculopathy, lumbar region (principal); M96.1 Postlaminectomy syndrome, not elsewhere classified; E11.22 Type 2 diabetes mellitus with diabetic chronic kidney disease; N18.3 Chronic kidney disease, stage 3 (moderate); Z79.4 Long term (current) use of insulin
CPT/HCPCS: G0463

== ENCOUNTER → 2019-03-13 | Outpatient (CLI) | payer MEDICARE, OTHER | LOC: MHCPAIN 11:57 | DX: M54.5 Low back pain (principal) | CPT/HCPCS: J1100; Q9967 ==

== ENCOUNTER → 2019-03-18 | Outpatient (CLI) | payer MEDICARE, OTHER | LOC: MHCPAIN 09:13 | DX: M54.16 Radiculopathy, lumbar region (principal); M96.1 Postlaminectomy syndrome, not elsewhere classified; G89.29 Other chronic pain | CPT/HCPCS: G0463 ==

== ENCOUNTER 2019-03-24 08:45 | Outpatient (RCR) | payer MEDICARE, OTHER ==
[~2019-03-24 08:45] MED LIST changes: -CEPHALEXIN500 M1 PO; -CORDARONE200 MG/TAB PO; -FLEXERIL 1010 MG/TAB PO; -HYTRIN 1MG C1 MG/CAP PO; -K-DUR20 MEQ PO; -LANTUS SOLOS100 U/ML SQ; -NORCO 325 MG-51 TAB PO; -NORVASC 5MG5 MG/TAB PO; -ZAROXOLYN 2.52.5 MG PO
[2019-03-29] MEDS ORDERED: CORDARONE200 MG/TAB PO (20:27)
[2019-03-29] MEDS ORDERED: NORVASC 5MG5 MG/TAB PO (20:28)
[2019-03-29] MEDS ORDERED: BASAGLAR K100 UNIT/1 SQ (20:29)
[2019-03-29] MEDS ORDERED: HYTRIN 1MG C1 MG/CAP PO (21:32)
[2019-03-30] MEDS ORDERED: FLEXERIL 1010 MG/TAB PO (01:30)
[2019-03-30] MEDS ORDERED: NORCO 325 MG-51 TAB PO (01:31)
[2019-03-30] MEDS ORDERED: ZAROXOLYN 2.52.5 MG PO (01:32)
[2019-03-30] MEDS ORDERED: LANTUS SOLOS100 U/ML SQ ×2 (01:51)
[2019-04-01] MEDS ORDERED: NORVASC 5MG5 MG/TAB PO (12:25)
[2019-04-01] MEDS ORDERED: CEPHALEXIN500 M1 PO (12:25)
[2019-04-01] MEDS ORDERED: LIPITOR 40MG TA40 MG PO (12:25)
[2019-04-01] MEDS ORDERED: K-DUR20 MEQ PO (12:29)
[2019-04-01] MEDS ORDERED: ELIQUIS 5MG PO (14:11)
== END 2019-06-17 | disposition home or self-care (01) ==
LOC: WSC
DX: M51.36 Other intervertebral disc degeneration, lumbar region (principal); M48.061 Spinal stenosis, lumbar region without neurogenic claudication

== ENCOUNTER → 2019-03-27 | Outpatient (CLI) | payer MEDICARE, OTHER ==
[~2019-03-27] MED LIST changes: +CEPHALEXIN500 M1 PO; +CORDARONE200 MG/TAB PO; +FLEXERIL 1010 MG/TAB PO; +HYTRIN 1MG C1 MG/CAP PO; +K-DUR20 MEQ PO; +LANTUS SOLOS100 U/ML SQ; +NORCO 325 MG-51 TAB PO; +NORVASC 5MG5 MG/TAB PO; +ZAROXOLYN 2.52.5 MG PO
== END ==
LOC: MHCPAIN 08:51
DX: M54.5 Low back pain (principal)
CPT/HCPCS: J1100; Q9967

== ENCOUNTER 2019-03-29 19:01 | Inpatient (IN) | payer MEDICARE, OTHER ==
[~2019-03-29] VITALS: Ht 185.4 cm; Wt 109.4 kg
[2019-03-29] VITALS (14 sets, daily range): O2SAT 93–98
[~2019-03-29 19:01] MED LIST changes: -CEPHALEXIN500 M1 PO; -CORDARONE200 MG/TAB PO; -FLEXERIL 1010 MG/TAB PO; -HYTRIN 1MG C1 MG/CAP PO; -K-DUR20 MEQ PO; -LANTUS SOLOS100 U/ML SQ; -NORCO 325 MG-51 TAB PO; -NORVASC 5MG5 MG/TAB PO; -ZAROXOLYN 2.52.5 MG PO
[2019-03-29 19:48] LABS: BASO # 0.1 (0.0-0.2); BASO % 0.5 % (0.0-2.0); EOS # 0.1 (0.0-0.7); EOS % 0.4 % (0-4.0); GRAN # 11.9 (1.4-6.5); GRAN % 79.1 % (42.2-75.2); HEMATOCRIT 42.4 % (42.0-52.0); HEMOGLOBIN 14.9 g/dl (13.5-18.0); LYMPH # 1.9 (1.2-3.4); LYMPH % 12.9 % (20.0-51.0); MEAN CELL VOLUME 89 fl (80.0-100.0); MEAN CORPUSCULAR HEMOGLOBIN 31 pg (27.0-31.0); MEAN CORPUSCULAR HGB CONC 35 g/dl (33.0-37.0); MONO % 6.5 % (1.7-9.3); PLATELET COUNT 383 K/mm3 (130-400); RED BLOOD COUNT 4.79 M/mm3 (4.20-5.60); REDCELL DISTRIBUTION WIDTH-CV 11.9 % (11.5-14.5)
[2019-03-29 19:55] LABS: BILIRUBIN,TOTAL 0.4 mg/dL (0.0-1.0); CALCIUM 8.9 mg/dL (8.4-10.2); CREATININE, serum 2.64 (0.66-1.25); POTASSIUM 3.7 mmol/L (3.4-5.0); TOTAL PROTEIN 7.1 gm/dL (6.4-8.2)
[2019-03-29 20:14] LABS: PARTIAL THROMBOPLASTIN TIME 32.7 SECONDS (26.0-37.0)
[2019-03-29 20:22] LABS: TROPONIN-I 0.049 ng/mL (0.000-0.035)
[2019-03-29] MEDS ORDERED: CORDARONE200 MG/TAB PO (20:27)
[2019-03-29] MEDS ORDERED: NORVASC 5MG5 MG/TAB PO (20:28)
[2019-03-29] MEDS ORDERED: BASAGLAR K100 UNIT/1 SQ (20:29)
[2019-03-29 20:37] LABS: INR 1.1 (0.8-3.0); PROTHROMBIN TIME 12.4 SECONDS (9.7-12.8)
[2019-03-29] MEDS ORDERED: HYTRIN 1MG C1 MG/CAP PO (21:32)
[2019-03-29 21:55] LABS: ARTERIAL BLD GAS O2 SATURATION 94.5 % (92-100); ARTERIAL BLD GAS TCO2 CT 28.6; ARTERIAL BLOOD GAS BASE EXCESS 3.6 (-2-2); ARTERIAL BLOOD GAS HCO3 27.4 meq/L (22-26); ARTERIAL BLOOD GAS PCO2 38.9 mmHg (35-45); ARTERIAL BLOOD GAS PO2 72.2 mmHg (80-100); ARTERIAL BLOOD GAS pH 7.47 (7.35-7.45)
[2019-03-29 22:04] LABS: COLLECTION METHOD CATHETER
[2019-03-29 22:18] LABS: MUCOUS Present /lpf; PH 6 (5-8); SQUAMOUS EPITHELIAL None Seen /hpf; URINE APPEARANCE Clear; URINE BACTERIA None Seen /hpf; URINE BILIRUBIN Negative (NEGATIVE); URINE BLOOD 1+ (NEGATIVE); URINE COLOR Yellow; URINE GLUCOSE 1+ (NEGATIVE); URINE KETONE Negative (NEGATIVE); URINE LEUKOCYTE ESTERASE Negative (NEGATIVE); URINE NITRATE Negative (NEGATIVE); URINE PROTEIN(semi-quant) 3+ (NEGATIVE); URINE RBC 0-2 /hpf; URINE UROBILINOGEN Negative (NEGATIVE)
--- NOTE | 2019-03-29 22:50 | NUR ---
Report received from Nellie Headley RN in ED.
--- NOTE | 2019-03-29 23:30 | NUR ---
Pt arrived via stretcher accompanied by spouse and X1 ED nurse. Pt moved over from stretcher to [facility] 17 bed independently with beds placed side by side. Spouse reports left leg is numb and pt is unable to lift which makes ambulation a challenge. Assessment completed. VSS.
[2019-03-30] VITALS (902 sets, daily range): BP systolic 146–193; BP diastolic 67–103; PULSE 64–94; TEMP 97.4–98; O2SAT 81–99
[2019-03-30 00:28] LABS: MAGNESIUM 1.7 mg/dL (1.6-2.3); PHOSPHOROUS 4.4 mg/dL (2.5-4.5)
[2019-03-30 00:49] LABS: TROPONIN-I 0.049 ng/mL (0.000-0.035)
[2019-03-30 01:00] LABS: TSH w REFLEX 2.53 uIU/mL (0.465-4.680)
[2019-03-30] MEDS ORDERED: FLEXERIL 1010 MG/TAB PO (01:30)
[2019-03-30] MEDS ORDERED: NORCO 325 MG-51 TAB PO (01:31)
[2019-03-30] MEDS ORDERED: ZAROXOLYN 2.52.5 MG PO (01:32)
[2019-03-30] MEDS ORDERED: LANTUS SOLOS100 U/ML SQ ×2 (01:51)
--- NOTE | 2019-03-30 07:20 | NUR ---
Report provided to Kathy CLEMENS. Stroke scale completed with oncoming nurse. Pt sitting at bedside at this time.
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
--- NOTE | 2019-03-30 20:08 | NUR ---
Moderate improvement in short term memory noted this evening. remains at bedside. Questions addressed throughout shift. Pt education materials provided. Both patient and eager to discharge.
[2019-03-31] VITALS (623 sets, daily range): BP systolic 127–177; BP diastolic 70–93; PULSE 59–70; TEMP 97.4–98.5; O2SAT 88–99
[2019-03-31 05:23] LABS: BASO # 0.1 (0.0-0.2); BASO % 0.5 % (0.0-2.0); EOS # 0.1 (0.0-0.7); EOS % 1.5 % (0-4.0); GRAN # 6.9 (1.4-6.5); GRAN % 72.6 % (42.2-75.2); LYMPH # 1.5 (1.2-3.4); LYMPH % 15.9 % (20.0-51.0); MEAN CELL VOLUME 88 fl (80.0-100.0); MEAN CORPUSCULAR HGB CONC 36 g/dl (33.0-37.0); MEAN PLATELET VOLUME 9.6 fl (7.4-10.4); MONO # 0.9 (0.1-0.6); MONO % 9.2 % (1.7-9.3); REDCELL DISTRIBUTION WIDTH-CV 11.8 % (11.5-14.5)
[2019-03-31 05:24] LABS: HEMATOCRIT 36.2 % (42.0-52.0); HEMOGLOBIN 12.9 g/dl (13.5-18.0); MEAN CORPUSCULAR HEMOGLOBIN 31 pg (27.0-31.0); PLATELET COUNT 269 K/mm3 (130-400)
[2019-03-31 05:36] LABS: ALANINE AMINOTRANSFERASE 16 U/L (21-72); ALBUMIN 3.1 gm/dL (3.5-5.0); ALKALINE PHOSPHATASE 69 U/L (50-136); ANION GAP 4 mmol/L (7-16); AST,SGOT 18 U/L (15-37); BILIRUBIN,TOTAL 0.5 mg/dL (0.0-1.0); BLOOD UREA NITROGEN 41 mg/dL (9-20); C-REACTIVE PROTEIN < 0.5 mg/dL (0.0-0.9); CALCIUM 8.2 mg/dL (8.4-10.2); CARBON DIOXIDE 29 mmol/L (22-30); CHLORIDE 101 mmol/L (98-107); CHOLESTEROL 207 mg/dL (120-200); CHOLESTEROL RISK RATIO 6.4; CREATININE, serum 2.35 (0.66-1.25); GLUCOSE 212 mg/dL (74-106); HDL CHOLESTEROL 32 mg/dL; LDL CHOLESTEROL 120 mg/dL; POTASSIUM 3.3 mmol/L (3.4-5.0); SODIUM 134 mmol/L (137-145); TOTAL PROTEIN 5.7 gm/dL (6.4-8.2); TRIGLYCERIDE 276 mg/dL
--- NOTE | 2019-03-31 06:26 | NUR ---
PT has had some short term memory issues throughout the evening, will ask the same questions throughout the night and will occasionally forget the year but is able to answer appropriately once he figures it out based on his age, which he answers correctly. Has been oriented otherwise, no physical defecits noted outside of baseline, and follows directions.
--- NOTE | 2019-03-31 07:30 | NUR ---
Bedside shift report received from JAYLEEN Trujillo. Patient is awake, alert, sitting on the side of the bed with no complaints or concerns at this time. Full assessment completed. Vital signs stable. Bed in lowest position. Side rails up x2. Call light within reach.
--- NOTE | 2019-03-31 09:58 | NUR ---
Went into patient's room to get consents signed for upcoming procedures. Patient and have remaining concerns and do not feel comfortable signing consent for CRISTIAN at this time. is very emotional and crying. Patient continues to ask questions about procedure. Will update Aida storage engineer on their concerns and hesitancy to sign consents.
--- NOTE | 2019-03-31 15:00 | NUR ---
Patient presses call light and states that his loop recorder site is bleeding. RN at bedside to assess. Tape and gauze removed except for gauze on site due to clot formed and I do not want to remove the clot and cause more bleeding. Side reinforced with new gauze and foam tape pressure dressing at this time.
--- NOTE | 2019-03-31 19:20 | NUR ---
Bedside shift report given to JAYLEEN Mcmillan. Patient and have no complaints or concerns at this time. Bed in lowest position. Side rails up x2. Call light within reach.
[2019-04-01] VITALS (797 sets, daily range): BP systolic 105–169; BP diastolic 52–100; PULSE 57–71; TEMP 97.7–98.7; O2SAT 75–100
[2019-04-01 06:38] LABS: BASO % 0.4 % (0.0-2.0); EOS # 0.2 (0.0-0.7); EOS % 1.9 % (0-4.0); GRAN # 7.3 (1.4-6.5); GRAN % 73.9 % (42.2-75.2); HEMATOCRIT 39.7 % (42.0-52.0); HEMOGLOBIN 13.7 g/dl (13.5-18.0); LYMPH # 1.5 (1.2-3.4); MEAN CELL VOLUME 89 fl (80.0-100.0); MEAN CORPUSCULAR HEMOGLOBIN 31 pg (27.0-31.0); MEAN CORPUSCULAR HGB CONC 35 g/dl (33.0-37.0); MEAN PLATELET VOLUME 10.2 fl (7.4-10.4); MONO # 0.8 (0.1-0.6); MONO % 8.4 % (1.7-9.3); PLATELET COUNT 285 K/mm3 (130-400); RED BLOOD COUNT 4.48 M/mm3 (4.20-5.60); REDCELL DISTRIBUTION WIDTH-CV 11.7 % (11.5-14.5)
[2019-04-01 06:47] LABS: CALCIUM 8.5 mg/dL (8.4-10.2); CREATININE, serum 2.36 (0.66-1.25); MAGNESIUM 1.7 mg/dL (1.6-2.3); POTASSIUM 3.4 mmol/L (3.4-5.0)
--- NOTE | 2019-04-01 07:30 | NUR ---
Bedside shift report received from JAYLEEN Mcmillan. Patient is awake and resting with no complaints or concerns at this time. Full assessment completed. Bed in lowest position. Call light within reach. Side rails up x2.
--- NOTE | 2019-04-01 09:23 | NUR ---
Attempted to give potassium IV. Patient states the IV is painful. Patient educated that potassium tends to sting when administered. IV turned down to 50ml/hr. Patient continues to state it is painful. Patient begins writhin in pain, yelling out, and screaming to "turn it off!". IV assessed and site looks great, no complications. IV fluids stopped and potassium disconnected. IV flushed. Will attempt to administer PO potassium after CRISTIAN this morning.
--- NOTE | 2019-04-01 11:02 | NUR ---
Initial visit; Patient and his thanked Slag Production Worker for offering spiritual care, especiallly prayer and God's blessings.
--- NOTE | 2019-04-01 11:30 | NUR ---
Serina RN in room to assist during procedure and with patient briefly post-op. JAYLEEN Smalls relays that there were no complications and procedure went well.
--- NOTE | 2019-04-01 11:48 | NUR ---
END OF CRISTIAN C BUBBLE STUDY. PT RESTING COMFORTABLY. NO COMPLICATIONS.
--- NOTE | 2019-04-01 11:51 | NUR ---
PT RECOVERED FROM CRISTIAN AT THIS TIME. FULLY AWAKE AND ASKING QUESTIONS. LOOP RECORDER DRESSING REDRESSED WITH CHLORAPREP AND STRI-STRIPS PER DR. GREWAL ORDER.
[2019-04-01] MEDS ORDERED: LIPITOR 40MG TA40 MG PO (12:25)
[2019-04-01] MEDS ORDERED: CEPHALEXIN500 M1 PO (12:25)
[2019-04-01] MEDS ORDERED: NORVASC 5MG5 MG/TAB PO (12:25)
[2019-04-01] MEDS ORDERED: K-DUR20 MEQ PO (12:29)
[2019-04-01] MEDS ORDERED: ELIQUIS 5MG PO (14:11)
--- NOTE | 2019-04-01 15:50 | NUR ---
Patient and , Santa, educated on discharge paperwork and follow up appointments. All questions answered and they have no further questions or concerns at this time. INT IV discontinued with no complications. Personal belongings gathered, patient ambulates to wheelchair, and patient transferred to personal vehicle driven by Santa with no complications.
== END 2019-04-01 15:50 | disposition home or self-care (01) | DRG 41 ==
LOC: COL.ER 19:01 → IMCU 22:14
PROVIDERS: Emergency Medicine; Nurse Practitioner Family; ADMIT Family Medicine
PROC: 0JH602Z Insertion of Monitoring Device into Chest Subcutaneous Tissue and Fascia, Open Approach (ICD-10-PCS; principal; 2019-03-29)
DX: I63.59 Cerebral infarction due to unspecified occlusion or stenosis of other cerebral artery (principal); I48.20 Chronic atrial fibrillation, unspecified; I48.92 Unspecified atrial flutter; G93.49 Other encephalopathy; R79.89 Other specified abnormal findings of blood chemistry; Z79.01 Long term (current) use of anticoagulants; E66.9 Obesity, unspecified; E78.5 Hyperlipidemia, unspecified; H54.1131 Blindness right eye category 3, low vision left eye category 1; J44.9 Chronic obstructive pulmonary disease, unspecified; G47.33 Obstructive sleep apnea (adult) (pediatric); I12.9 Hypertensive chronic kidney disease with stage 1 through stage 4 chronic kidney disease, or unspecified chronic kidney disease; Z87.891 Personal history of nicotine dependence; Z88.1 Allergy status to other antibiotic agents; Z88.8 Allergy status to other drugs, medicaments and biological substances; G89.29 Other chronic pain; I16.0 Hypertensive urgency; N18.3 Chronic kidney disease, stage 3 (moderate); E87.6 Hypokalemia; E11.42 Type 2 diabetes mellitus with diabetic polyneuropathy; Z79.4 Long term (current) use of insulin
CPT/HCPCS: 99222-AI; 99232-AI; 99233-AI; 99239; J0360; J1815; J2704; J3480; J7030

== ENCOUNTER → 2019-04-09 | Outpatient (CLI) | payer MEDICARE, OTHER ==
[~2019-04-09] MED LIST changes: +CEPHALEXIN500 M1 PO; +CORDARONE200 MG/TAB PO; +FLEXERIL 1010 MG/TAB PO; +HYTRIN 1MG C1 MG/CAP PO; +K-DUR20 MEQ PO; +LANTUS SOLOS100 U/ML SQ; +NORCO 325 MG-51 TAB PO; +NORVASC 5MG5 MG/TAB PO; +ZAROXOLYN 2.52.5 MG PO
== END ==
LOC: MHCPAIN 08:57
DX: M54.5 Low back pain (principal); M96.1 Postlaminectomy syndrome, not elsewhere classified; M53.3 Sacrococcygeal disorders, not elsewhere classified; E11.22 Type 2 diabetes mellitus with diabetic chronic kidney disease; Z79.4 Long term (current) use of insulin; N18.3 Chronic kidney disease, stage 3 (moderate)
CPT/HCPCS: G0463

== ENCOUNTER 2019-08-23 11:15 | Inpatient (IN) | payer MEDICARE, OTHER ==
[~2019-08-23] VITALS: Ht 177.8 cm; Wt 123.5 kg
[2019-08-23 12:28] LABS: BASO % 0.4 % (0.0-2.0); EOS # 0.1 (0.0-0.7); EOS % 0.5 % (0-4.0); GRAN # 8.2 (1.4-6.5); GRAN % 82.9 % (42.2-75.2); HEMOGLOBIN 10.5 g/dl (13.5-18.0); LYMPH # 0.8 (1.2-3.4); LYMPH % 7.8 % (20.0-51.0); MEAN CELL VOLUME 95 fl (80.0-100.0); MEAN CORPUSCULAR HEMOGLOBIN 30 pg (27.0-31.0); MEAN CORPUSCULAR HGB CONC 32 g/dl (33.0-37.0); MEAN PLATELET VOLUME 10.2 fl (7.4-10.4); MONO # 0.8 (0.1-0.6); PLATELET COUNT 237 K/mm3 (130-400); RED BLOOD COUNT 3.49 M/mm3 (4.20-5.60); REDCELL DISTRIBUTION WIDTH-CV 12.8 % (11.5-14.5)
[2019-08-23 12:35] LABS: HEMATOCRIT 33.3 % (42.0-52.0)
[2019-08-23 12:36] LABS: INR 1.9 (0.8-3.0); PROTHROMBIN TIME 21.9 SECONDS (9.7-12.8)
[2019-08-23 12:46] LABS: ALBUMIN 3.9 gm/dL (3.5-5.0); BILIRUBIN,TOTAL 0.8 mg/dL (0.0-1.0); C-REACTIVE PROTEIN 2.7 mg/dL (0.0-0.9); CALCIUM 8.5 mg/dL (8.4-10.2); CREATININE, serum 3.46 (0.66-1.25); POTASSIUM 4.9 mmol/L (3.4-5.0); TOTAL PROTEIN 7.3 gm/dL (6.4-8.2)
[2019-08-23 13:19] LABS: TROPONIN-I 0.044 ng/mL (0.000-0.035)
[2019-08-23 16:55] VITALS: BP 148/63; PULSE 79; TEMP 98.5
[2019-08-23 17:18] VITALS: BP 148/65; PULSE 78; TEMP 98.5
[2019-08-23] MEDS ORDERED: CALCITRIOL PO (18:14)
--- NOTE | 2019-08-23 19:24 | NUR ---
Admitted through ER for SOA, Patient is alert and oriented. 2+ edema. on BIPAP at this moment. covid pending at this time. patient is high fall risk for blindness and respiratory status.
[2019-08-23 19:32] LABS: ARTERIAL BLD GAS O2 SATURATION 96.9 % (92-100); ARTERIAL BLD GAS TCO2 CT 28.3; ARTERIAL BLOOD GAS BASE EXCESS 0.5 (-2-2); ARTERIAL BLOOD GAS HCO3 26.7 meq/L (22-26); ARTERIAL BLOOD GAS PCO2 50.2 mmHg (35-45); ARTERIAL BLOOD GAS PO2 90.9 mmHg (80-100); ARTERIAL BLOOD GAS pH 7.34 (7.35-7.45)
[2019-08-23 20:38] VITALS: BP 114/71; PULSE 89; TEMP 97.8
[2019-08-23 23:49] VITALS: BP 121/49; PULSE 83; TEMP 98.1
[2019-08-24 03:52] VITALS: BP 134/58; PULSE 82; TEMP 98.2
[2019-08-24 07:58] LABS: HEMOGLOBIN 10.7 g/dl (13.5-18.0); MEAN CELL VOLUME 93 fl (80.0-100.0); MEAN CORPUSCULAR HEMOGLOBIN 30 pg (27.0-31.0); MEAN CORPUSCULAR HGB CONC 33 g/dl (33.0-37.0); MEAN PLATELET VOLUME 10.7 fl (7.4-10.4); PLATELET COUNT 253 K/mm3 (130-400); RED BLOOD COUNT 3.55 M/mm3 (4.20-5.60); REDCELL DISTRIBUTION WIDTH-CV 12.6 % (11.5-14.5)
[2019-08-24 08:00] VITALS: BP 137/60; PULSE 87; TEMP 97.7
[2019-08-24 08:07] LABS: CALCIUM 8.7 mg/dL (8.4-10.2); CREATININE, serum 3.07 (0.66-1.25); MAGNESIUM 2.6 mg/dL (1.6-2.3); PHOSPHOROUS 4.6 mg/dL (2.5-4.5); POTASSIUM 4.4 mmol/L (3.4-5.0)
[2019-08-24 08:10] LABS: HEMATOCRIT 32.9 % (42.0-52.0)
[2019-08-24 08:19] LABS: TROPONIN-I 0.03 ng/mL (0.000-0.035)
--- NOTE | 2019-08-24 09:00 | NUR ---
Patient resting in bed, easily arousable. A&O. Denies pain and discomfort. VSS 3L O2 Oxymask, telemetry on chest. IV CDI, coban covering. PUI precautions in place. Patient assisted with eating dinner. No further needs expressed from patient. Call light within reach. Bedside table within reach and patient oriented to items on the table.
[2019-08-24 11:06] LABS: BAND 2 % (0-10); LYMPHOCYTE 4 % (20.0-51.0); NEUTROPHILS 91 % (42.0-75.2)
[2019-08-24 11:07] LABS: ANISOCYTOSIS 1+; PLATELET ESTIMATE NORMAL (NORMAL)
[2019-08-24 12:24] VITALS: BP 139/66; PULSE 87; TEMP 98
--- NOTE | 2019-08-24 13:42 | NUR ---
Plan: To return home with Santa [phone] as EMR and care support. Patient indicated that he does not currently have a DPOA and declined one at this time. He resides in [facility]. Assess: SW contacted patient via phone due to precaution status. Patient indicated utilizing a BPAP and a walker at this time. Patient reported that his PCP id Dr. Rosales, he was not sure if he had any upcoming appointments at this time. Patient [place] [facility] [place]. patient indicated that he will need a Cpap machine. SW will follow up with patients provider with instruction. No additional concerns noted at this time. Action: CHANEL will speak with hospitalist about CPAP, and follow up.
[2019-08-24 16:03] VITALS: BP 120/63; PULSE 86
--- NOTE | 2019-08-24 17:22 | NUR ---
Patient had a good day. VSS 3L Oxymask and Bipap throughout the shift. IV CDI. Patient assisted with feeding and using the bathroom. Reports chronic pain, no pain medication given or requested. Covid precautions in place. No further needs expressed from patient. Call light within reach
[2019-08-24 20:06] VITALS: BP 155/66; PULSE 98; TEMP 97.6
--- NOTE | 2019-08-24 22:00 | NUR ---
Pt assessment completed and documented. Pt sitting up on edge of his bed at this time. Pt alert and oriented x4. Denies pain. INT to right wrist patent and intact. Telemetry on. Pt on 3L O2 via oxymask. Educated pt on 24 hr urine collection and pt verbazied understanding. 24 hour urine collection started at this time. Pt denies any other needs at this time. Call light within reach. Will continue to monitor.
[2019-08-24 22:49] VITALS: BP 150/75; PULSE 80; TEMP 97.7
--- NOTE | 2019-08-25 04:22 | NUR ---
GLUCOMETER NOT SYNCING BLOOD SUGAR TO SYSTEM. BG 08/23 AT 2157 WAS 332. BG TREATED PER ORDERS
[2019-08-25 04:35] VITALS: BP 128/53; PULSE 90; TEMP 97.2
[2019-08-25 05:26] LABS: CALCIUM 8.6 mg/dL (8.4-10.2); CREATININE, serum 3.01 (0.66-1.25); MAGNESIUM 2.5 mg/dL (1.6-2.3)
[2019-08-25 05:30] LABS: ARTERIAL BLD GAS O2 SATURATION 98.6 % (92-100); ARTERIAL BLD GAS TCO2 CT 29.6; ARTERIAL BLOOD GAS BASE EXCESS 2.8 (-2-2); ARTERIAL BLOOD GAS HCO3 28.2 meq/L (22-26); ARTERIAL BLOOD GAS PCO2 46.5 mmHg (35-45)
[2019-08-25 05:31] LABS: ARTERIAL BLOOD GAS PO2 141.5 mmHg (80-100)
--- NOTE | 2019-08-25 06:17 | NUR ---
Pt had uneventful shift. Pt rested well in bed overnight on BiPAP. INT to right wrist patent and intact. 24 hour urine collection in progress. Denied pain. Pt denies any other needs. Call light within reach.
--- NOTE | 2019-08-25 06:55 | NUR ---
Report given JAYLEEN Pringle
[2019-08-25 07:47] VITALS: BP 168/74; PULSE 92; TEMP 97.9
[2019-08-25 11:32] VITALS: BP 143/69; PULSE 88; TEMP 98
[2019-08-25 14:49] VITALS: BP 137/71; PULSE 86; TEMP 97.7
[2019-08-25 20:10] VITALS: BP 161/80; PULSE 79; TEMP 97.3
--- NOTE | 2019-08-25 21:00 | NUR ---
Pt assessment completed and documented. Pt sitting up on edge of his bed at this time. Pt alert and oriented x4. Denies pain. INT to right wrist CDI. Pt denies any other needs at this time. Call light within reach. Will continue to monitor.
[2019-08-25 23:20] VITALS: BP 140/53; PULSE 72; TEMP 97.4
[2019-08-25 23:27] LABS: CREATININE, serum 3.01 (0.66-1.25); URINE TOTAL VOLUME 3150 mL
[2019-08-26 00:11] LABS: URINE CREATININE CLEARANCE 28.9 mL/min (97-137)
[2019-08-26 03:05] VITALS: BP 130/75; PULSE 67; TEMP 97.7
--- NOTE | 2019-08-26 05:19 | NUR ---
Pt had uneventful shift. Pt rested well throughout the night on BiPAP. No complaints of pain overnight. INT to right wrist CDI. Pt denies any needs. Call light within reach.
[2019-08-26 07:20] LABS: CALCIUM 8.2 mg/dL (8.4-10.2); CREATININE, serum 3.07 (0.66-1.25); MAGNESIUM 2.5 mg/dL (1.6-2.3); PHOSPHOROUS 4.8 mg/dL (2.5-4.5); POTASSIUM 4.9 mmol/L (3.4-5.0)
[2019-08-26 07:33] VITALS: BP 128/78; PULSE 70; TEMP 97.4
--- NOTE | 2019-08-26 07:37 | NUR ---
Report given to JAYLEEN Fermin
--- NOTE | 2019-08-26 10:08 | NUR ---
Mechanical Development Engineer met with the patient to present the IM form. The patient understood and gave SW permission to sign the form. A copy was provided to the patient and original was placed in the chart.
[2019-08-26 12:43] VITALS: BP 152/75; PULSE 69; TEMP 97.4
[2019-08-26 17:46] VITALS: BP 155/71; PULSE 69; TEMP 97.5
--- NOTE | 2019-08-26 19:34 | NUR ---
Patient is alert and oriented, pain at 2/10. 2+ edema on BLE, 2+ on RUE. flight technician called to report 3rd degree AV block. Ordered ECG. ECG showed Aflutter. Dr Khan discussed possible cardioversion from Aflutter to Sinus Rhythm. Dr Mar order Lasix with I/O. Input was 1000mL, Output was 1400mL from 12pm to 7pm.
--- NOTE | 2019-08-26 19:49 | NUR ---
blood sugar at 408, insulin administered as scheduled. Informed ELI Cervantes. Additional 10unit Novolin IV was administered. BS rechecked 356. Solumedrol changed to Prednisone today.
[2019-08-26 20:42] VITALS: BP 139/61; PULSE 64; TEMP 97.4
--- NOTE | 2019-08-26 23:28 | NUR ---
Bipap placed on pt, RT notified. Made pt comfortable in bed. Needs met. Call light within reach.
[2019-08-26 23:49] VITALS: BP 129/52; PULSE 56; TEMP 98.2
--- NOTE | 2019-08-27 01:58 | NUR ---
Received report from JAYLEEN Fermin. Pt a/ox4. Denies any increased pain or discomfort at this time. States he has constant pain from previous accident/surgeries and pain at this time is tolerable and "nothing more than the usual." Scheduled meds administered. Pt is pleasant and cooperative with care. Pt is blind and needs assistance/guidance when using urinal. 3+ BLE edema, has darrick hose in place to LLE. INT to RFA intact, flushed w/o complications, dressing CDI. Tele monitor in place, leads checked. On 3LO2NC, denies SOB. Bipap at bedside. Needs met at this time. Call light within reach.
[2019-08-27 05:02] VITALS: BP 149/74; PULSE 64; TEMP 98
--- NOTE | 2019-08-27 06:31 | NUR ---
Pt wore bipap during sleep. No complaints made. Needs met. call light within reach.
--- NOTE | 2019-08-27 06:57 | NUR ---
Report given to JAYLEEN Chu.
[2019-08-27 07:35] VITALS: BP 129/55; PULSE 58; TEMP 97.8
[2019-08-27 09:19] LABS: ALBUMIN 3.7 gm/dL (3.5-5.0); CALCIUM 8.1 mg/dL (8.4-10.2); CREATININE, serum 2.95 (0.66-1.25); PHOSPHOROUS 4.9 mg/dL (2.5-4.5); POTASSIUM 4.4 mmol/L (3.4-5.0)
--- NOTE | 2019-08-27 09:47 | NUR ---
Duralumin Mechanic attended clinical rounds with the team. PT/OT ordered for the patient. After rounds, CHANEL contacted the patient's , Santa ([phone]) to revisit the discharge plan. Santa states the patient may want to go to outpatient physical therapy at the [facility]. He went there before Covid-19 started. Will continue to monitor.
--- NOTE | 2019-08-27 10:29 | NUR ---
PATIENT IS AWAKE AND ALERT IN ROOM. IS SITTING UP ON THE SIDE OF THE BED. STATES THE ONLY PAIN HE HAS IS HIS GENERALIZED PAIN THAT HE HAS ALWAYS HAD SINCE HIS ACCIDENT. HE DECLINES PAIN MEDICATION. HE DOES WISH TO WALK LATER, PT/OT HAS BEEN ORDERED AND HE IS PLEASED, VERBALIZED HE WAS AFRAID HE WAS GOING TO LOOSE HIS STRENGTH. PATIENT HAS EATEN WELL, WAS ASSISTED WITH SET UP DUE TO VISUAL IMPAIRMENT. CALL LIGHT AND PERSONAL ITEMS ARE WITHIN REACH.
[2019-08-27 11:12] VITALS: BP 164/91; PULSE 74; TEMP 97.5
[2019-08-27 17:36] VITALS: BP 128/78; PULSE 73; TEMP 98.1
--- NOTE | 2019-08-27 19:04 | NUR ---
REPORT GIVEN TO ON COMING SHIFT. PATIENT IS CURRENTLY EATING EVENING MEAL.
[2019-08-27 20:37] VITALS: BP 136/86; PULSE 72; TEMP 98.2
[2019-08-27 23:38] VITALS: BP 117/83; PULSE 84; TEMP 97.6
[2019-08-28] VITALS (7 sets, daily range): BP systolic 104–140; BP diastolic 55–91; PULSE 53–67; TEMP 97.5–97.8
--- NOTE | 2019-08-28 01:20 | NUR ---
Received report from JAYLEEN Chu. Pt sitting up on side of bed. A/Ox4. States he has chronic pain from accident but denies prn pain meds at this time. Scheduled meds administered. INT to RFA intact, flushed, dressing CDI. On 2LO2NC, denies SOB. Tele monitor in place, leads checked. Pt placed on bipap when he was ready for sleep. Pt understands NPO status at midnight. Consent for CRISTIAN/CV in AM not signed by pt, pt wishes to speak with provider in AM. Will endorse to day RN. Needs met. Call light within reach. Urinal at bedside. Walker at bedside.
--- NOTE | 2019-08-28 07:28 | NUR ---
Report given to JAYLEEN Cheng and JAYLEEN Lange.
--- NOTE | 2019-08-28 07:57 | NUR ---
BEDSIDE REPORT RECEIVED FROM JYALEEN SIDDIQUI. PT SLEEPING AT THIS TIME.
[2019-08-28 09:02] LABS: BASO % 0.1 % (0.0-2.0); EOS # 0.1 (0.0-0.7); EOS % 0.7 % (0-4.0); GRAN # 10.4 (1.4-6.5); GRAN % 76.5 % (42.2-75.2); HEMATOCRIT 37.3 % (42.0-52.0); HEMOGLOBIN 12.2 g/dl (13.5-18.0); LYMPH # 1.7 (1.2-3.4); LYMPH % 12.7 % (20.0-51.0); MEAN CELL VOLUME 92 fl (80.0-100.0); MEAN CORPUSCULAR HEMOGLOBIN 30 pg (27.0-31.0); MEAN CORPUSCULAR HGB CONC 33 g/dl (33.0-37.0); MEAN PLATELET VOLUME 10.4 fl (7.4-10.4); MONO # 1.3 (0.1-0.6); MONO % 9.6 % (1.7-9.3); PLATELET COUNT 342 K/mm3 (130-400); RED BLOOD COUNT 4.07 M/mm3 (4.20-5.60); REDCELL DISTRIBUTION WIDTH-CV 12.5 % (11.5-14.5)
[2019-08-28 09:11] LABS: CALCIUM 8.2 mg/dL (8.4-10.2); CREATININE, serum 3.24 (0.66-1.25)
[2019-08-28 09:15] LABS: INR 1.4 (0.8-3.0); PROTHROMBIN TIME 15.8 SECONDS (9.7-12.8)
--- NOTE | 2019-08-28 10:20 | NUR ---
ASSESSMENT COMPLETED. PT RESTING IN BED ON 2 LITERS OXYGEN BY NASAL CANNULA. 3+ PITTING EDEMA NOTED BILATERAL LOWER EXTREMITIES. 1+ EDEMA NOTED RIGHT UPPER EXTREMITY. SCARRING TO RIGHT UPPER EXTREMITY FROM PAST SURGERY. BRUISING TO RIGHT HAND. WEAK MOVEMENTS LEFT LOWER EXTREMITY, PT STATES DUE TO PAST INJURIES TO LEFT FOOT. PULSES +1 TO BILATERAL LOWER EXTREMITIES. PT REPORTS BLINDNESS IN BOTH EYES DUE TO PREVIOUS INJURIES. NO OTHER ABNORMAL FINDINGS NOTED AT THIS TIME. REPORTS CHRONIC PAIN 2/10, DECLINES ANY INTERVENTIONS AT THIS TIME. NO OTHER CONCERNS REPORTED. WILL CONTINUE TO MONITOR. CALL LIGHT WITHIN REACH.
--- NOTE | 2019-08-28 13:00 | NUR ---
Pt arrived back to unit at 1248. Resting in bed. Pt reports no pain. Vital signs stable. Will continue to monitor.
--- NOTE | 2019-08-28 15:08 | NUR ---
Label Fuser Tender met with the patient to follow up. The patient would like to restart outpatient PT at the [facility] with the [facility] center. SW presented the IM form to the patient. The patient understood and signed the form. A copy was provided for the patient, original placed the chart. Will continue to monitor.
[2019-08-28] MEDS ORDERED: OMNICEF 300MG300 MG PO (17:06)
[2019-08-28] MEDS ORDERED: ZEBETA 5MG5 MG PO (17:07)
[2019-08-28] MEDS ORDERED: ZESTRIL2.5 MG PO (17:08)
[2019-08-28] MEDS ORDERED: LASIX 40MG TABL40 MG PO (17:08)
[2019-08-28] MEDS ORDERED: PREDNISONE10 MG PO (17:13)
--- NOTE | 2019-08-28 18:51 | NUR ---
DISCHARGE INSTRUCTIONS DISCUSSED WITH PATIENT, ALL QUESTIONS ANSWERED. IV TO LEFT AC REMOVED, TIP INTACT. PT TO BE TRANSPORTED OFF UNIT IN WHEELCHAIR.
== END 2019-08-28 18:40 | disposition home or self-care (01) | DRG 291 ==
LOC: COL.ER 11:15 → MEDICAL 13:02
PROVIDERS: Emergency Medicine; Internal Medicine; Internal Medicine Nephrology; Internal Medicine Pulmonary Disease; ADMIT Family Medicine
PROC: 5A2204Z Restoration of Cardiac Rhythm, Single (ICD-10-PCS; principal; 2019-08-28)
DX: I13.0 Hypertensive heart and chronic kidney disease with heart failure and stage 1 through stage 4 chronic kidney disease, or unspecified chronic kidney disease (principal); J96.01 Acute respiratory failure with hypoxia; J96.02 Acute respiratory failure with hypercapnia; I50.33 Acute on chronic diastolic (congestive) heart failure; N17.9 Acute kidney failure, unspecified; Z68.41 Body mass index [BMI] 40.0-44.9, adult; N18.3 Chronic kidney disease, stage 3 (moderate); J44.9 Chronic obstructive pulmonary disease, unspecified; G89.29 Other chronic pain; E78.5 Hyperlipidemia, unspecified; E11.22 Type 2 diabetes mellitus with diabetic chronic kidney disease; I48.91 Unspecified atrial fibrillation; G47.33 Obstructive sleep apnea (adult) (pediatric); E66.9 Obesity, unspecified; E11.65 Type 2 diabetes mellitus with hyperglycemia; Z20.828 Contact with and (suspected) exposure to other viral communicable diseases; Z86.73 Personal history of transient ischemic attack (TIA), and cerebral infarction without residual deficits; Z79.01 Long term (current) use of anticoagulants; Z87.891 Personal history of nicotine dependence; Z88.1 Allergy status to other antibiotic agents; Z79.4 Long term (current) use of insulin
CPT/HCPCS: 99223-AI; 99232-AI; 99233-AI; J0692; J1815; J1940; J2704; J2920; J2930; J7512

== ENCOUNTER 2020-08-15 08:57 | Emergency (ER) | payer MEDICARE, OTHER ==
[~2020-08-15] VITALS: Ht 182.9 cm; Wt 127.3 kg
[~2020-08-15 08:57] MED LIST changes: +CALCITRIOL PO; +OMNICEF 300MG300 MG PO; +ZEBETA 5MG5 MG PO; +ZESTRIL2.5 MG PO
[2020-08-15 09:07] VITALS: TEMP 98.3
[2020-08-15 09:49] LABS: HEMATOCRIT 38.7 % (42.0-52.0); HEMOGLOBIN 12.6 g/dl (13.5-18.0); MEAN CELL VOLUME 96 fl (80.0-100.0); MEAN CORPUSCULAR HEMOGLOBIN 31 pg (27.0-31.0); MEAN CORPUSCULAR HGB CONC 33 g/dl (33.0-37.0); PLATELET COUNT 204 K/mm3 (130-400); RED BLOOD COUNT 4.05 M/mm3 (4.20-5.60); REDCELL DISTRIBUTION WIDTH-CV 13.2 % (11.5-14.5)
[2020-08-15 10:07] LABS: ALBUMIN 3.7 gm/dL (3.5-5.0); BILIRUBIN,TOTAL 0.4 mg/dL (0.0-1.0); CALCIUM 8.6 mg/dL (8.4-10.2); CREATININE, serum 3.4 (0.66-1.25); POTASSIUM 5.7 mmol/L (3.4-5.0); TOTAL PROTEIN 6.7 gm/dL (6.4-8.2)
[2020-08-15 10:27] LABS: COLLECTION METHOD CLEAN CATCH
[2020-08-15 10:36] LABS: MUCOUS Present /lpf; PH 5 (5-8); SQUAMOUS EPITHELIAL None Seen /hpf; URINE APPEARANCE Clear; URINE BILIRUBIN Negative (NEGATIVE); URINE BLOOD 2+ (NEGATIVE); URINE COLOR Straw; URINE GLUCOSE 1+ (NEGATIVE); URINE KETONE Negative (NEGATIVE); URINE LEUKOCYTE ESTERASE Negative (NEGATIVE); URINE NITRATE Negative (NEGATIVE); URINE PROTEIN(semi-quant) 3+ (NEGATIVE); URINE RBC 0-2 /hpf; URINE UROBILINOGEN Negative (NEGATIVE)
[2020-08-15 10:43] LABS: BAND 8 % (0-10); LYMPHOCYTE 3 % (20.0-51.0); NEUTROPHILS 84 % (42.0-75.2); PLATELET ESTIMATE NORMAL (NORMAL)
[2020-08-15 10:48] LABS: URINE BACTERIA Rare /hpf
[2020-08-15] MEDS ORDERED: CEPHALEXIN500 M1 PO (12:36)
[2020-08-15] MEDS ORDERED: PERCOCET 325 MG1 TA2 PO (13:18)
[2020-08-15 13:32] VITALS: BP 126/60; PULSE 89
== END 2020-08-15 13:37 | disposition home or self-care (01) ==
LOC: COL.ER 08:57
PROVIDERS: Family Medicine
DX: L03.116 Cellulitis of left lower limb (principal); E87.5 Hyperkalemia; N28.9 Disorder of kidney and ureter, unspecified; E11.9 Type 2 diabetes mellitus without complications; I48.91 Unspecified atrial fibrillation; Z20.822 Contact with and (suspected) exposure to COVID-19; Z87.891 Personal history of nicotine dependence; Z88.1 Allergy status to other antibiotic agents; Z79.4 Long term (current) use of insulin; Z79.01 Long term (current) use of anticoagulants; Z79.82 Long term (current) use of aspirin
CPT/HCPCS: J0690; J2270; J7030

== ENCOUNTER 2020-08-16 15:18 | Emergency (ER) | payer MEDICARE, OTHER ==
[~2020-08-16] VITALS: Ht 177.8 cm; Wt 113.6 kg
[~2020-08-16 15:18] MED LIST changes: +PERCOCET 325 MG1 TA2 PO
[2020-08-16 16:13] VITALS: TEMP 100
[2020-08-16 20:07] LABS: BASO % 0.2 % (0.0-2.0); EOS % 0.1 % (0-4.0); GRAN # 13.1 (1.4-6.5); GRAN % 87.1 % (42.2-75.2); HEMATOCRIT 35.6 % (42.0-52.0); HEMOGLOBIN 11.5 g/dl (13.5-18.0); LYMPH # 0.9 (1.2-3.4); LYMPH % 6.3 % (20.0-51.0); MEAN CELL VOLUME 98 fl (80.0-100.0); MEAN CORPUSCULAR HEMOGLOBIN 32 pg (27.0-31.0); MEAN CORPUSCULAR HGB CONC 32 g/dl (33.0-37.0); MEAN PLATELET VOLUME 10.2 fl (7.4-10.4); MONO # 0.8 (0.1-0.6); MONO % 5.6 % (1.7-9.3); PLATELET COUNT 178 K/mm3 (130-400); RED BLOOD COUNT 3.63 M/mm3 (4.20-5.60); REDCELL DISTRIBUTION WIDTH-CV 13.5 % (11.5-14.5)
[2020-08-16 20:13] LABS: ALBUMIN 3.4 gm/dL (3.5-5.0); BILIRUBIN,TOTAL 0.4 mg/dL (0.0-1.0); CALCIUM 8.3 mg/dL (8.4-10.2); CREATININE, serum 4.19 (0.66-1.25); POTASSIUM 5.2 mmol/L (3.4-5.0); TOTAL PROTEIN 6.1 gm/dL (6.4-8.2)
[2020-08-16 22:33] VITALS: BP 114/70; PULSE 68
== END 2020-08-16 22:50 | disposition home or self-care (01) ==
LOC: COL.ER 15:18
PROVIDERS: Personal Emergency Response Attendant
DX: L03.116 Cellulitis of left lower limb (principal); E87.5 Hyperkalemia; D72.829 Elevated white blood cell count, unspecified; E11.9 Type 2 diabetes mellitus without complications; I48.91 Unspecified atrial fibrillation; Z79.4 Long term (current) use of insulin; Z79.01 Long term (current) use of anticoagulants; Z79.82 Long term (current) use of aspirin
CPT/HCPCS: J0696

== ENCOUNTER → 2021-09-06 | Outpatient (CLI) | payer MEDICARE, OTHER | LOC: COL.VAS 12:11 | DX: L98.8 Other specified disorders of the skin and subcutaneous tissue (principal) ==

== ENCOUNTER 2021-10-25 08:54 | Day surgery (SDC) | payer MEDICARE, OTHER ==
[~2021-10-25] VITALS: Ht 180.3 cm; Wt 115.9 kg
[~2021-10-25 08:54] MED LIST changes: -CALCITRIOL PO; +ROCALTROL0.5 MCG PO
[2021-10-25 10:30] VITALS: BP 169/67; PULSE 61; TEMP 98.6
--- NOTE | 2021-10-25 10:45 | NUR ---
Initial visit; Patient and his thanked Checker Dump Grounds for bringing him back to the Preparation Room, prior to his Procedure. Checker Dump Grounds offered comfort, encouragement and prayer prior nurse coming into his room to gather information and help him get ready for the Procedure. Patient warmly thanked Checker Dump Grounds for the prayer.
[2021-10-25] MEDS ORDERED: PRINIVIL5 MG PO (11:08)
[2021-10-25] MEDS ORDERED: MIRALAX PA17 GM/Dose PO (11:11)
[2021-10-25] MEDS ORDERED: VELTASSA8.4 GM PO (11:11)
[2021-10-25 11:30] VITALS: BP 160/69; PULSE 65; TEMP 97.5
--- NOTE | 2021-10-25 11:43 | NUR ---
1130 - PT arrives from procedure drowsy but oriented. PT assisted 2:1 from cart to chair via ambulation. Monitors applied; warm blankets applied. PT denies pain/nausea. remains present. Verbal room report obtained. Non-slip socks remain on. Call olivares remains within reach if needed. PT assisted w/ repositioning by RN.
[2021-10-25 11:45] VITALS: BP 158/75; PULSE 57
[2021-10-25 12:00] VITALS: BP 165/74; PULSE 56
--- NOTE | 2021-10-25 12:20 | NUR ---
1145 - Vitals obtained. PT continues to snack/drink. Denies nausea. Call olivares within reach. 1200 - Vitals obtained. PT expressed desire to be discharged. 1215 - IV discontinued. Catheter tip intact and pressure bandage applied; no redness or swelling noted. DC instructions and educational material reviewed w/ PT who verbalized understanding and signed the related paperwork. PT and refused assistance changing into personal clothes. Call olivares remains within reach. Urinal provided per request.
--- NOTE | 2021-10-25 12:35 | NUR ---
1230 - PT dismissed from endo via wheelchair to PT entrence by Lupe CLEMENS. PT has DC packet and personal belongings; PT was transferred into the care of his , who is driving private truck.
== END 2021-10-25 12:35 | disposition home or self-care (01) ==
LOC: SDCO 08:54
DX: Z12.11 Encounter for screening for malignant neoplasm of colon (principal); K57.30 Diverticulosis of large intestine without perforation or abscess without bleeding; K64.0 First degree hemorrhoids; D12.3 Benign neoplasm of transverse colon; D12.2 Benign neoplasm of ascending colon; D12.8 Benign neoplasm of rectum
CPT/HCPCS: J2704; J7120

== ENCOUNTER 2022-04-26 06:57 | Inpatient (IN) | payer MEDICARE, OTHER ==
[2022-04-26] VITALS (9 sets, daily range): BP systolic 105–154; BP diastolic 43–81; PULSE 50–61; TEMP 97.6–98.2
[~2022-04-26] VITALS: Ht 177.8 cm; Wt 118.4 kg
[~2022-04-26 06:57] MED LIST changes: +MIRALAX PA17 GM/Dose PO; +PRINIVIL5 MG PO; +SODIUM BICARBO650 MG PO; +VELTASSA8.4 GM PO
[2022-04-26] MEDS ORDERED: NORVASC 5MG5 MG/TAB PO (07:23)
[2022-04-26] MEDS ORDERED: BASAGLAR K100 UNIT/1 SQ (08:21)
--- NOTE | 2022-04-26 08:24 | NUR ---
RAC 20 GAVE IV PLACED BY CATH NURSE, PATIENT TAKEN DOWNSTAIRS FOR HD CATH PLACEMENT
--- NOTE | 2022-04-26 08:37 | NUR ---
SEE MERGE FOR ALL MEDICATIONS AND INTERVENTIONS AND VITALS
--- NOTE | 2022-04-26 09:27 | NUR ---
SPOKE WITH DIALYSIS NURSE ALVAREZ REGARDING SCHEDULED DIALYSIS TIME FOR THIS PATIENT. PER [employer] CONSULTANT IT WILL HOPEFULLY BE AROUND [phone], HOWEVER SHE WILL CALL THIS RN WHEN READY FOR PATIENT TO COME DOWN.
[2022-04-26 10:31] LABS: BASO # 0.1 K/mm3 (0.0-0.2); BASO % 0.7 % (0.0-2.0); EOS # 0.2 K/mm3 (0.0-0.7); EOS % 2.3 % (0.0-4.0); GRAN # 5.3 K/mm3 (1.4-6.5); GRAN % 71.3 % (42.2-75.2); HEMATOCRIT 26.5 % (42.0-52.0); HEMOGLOBIN 8.4 g/dl (13.5-18.0); LYMPH # 1.2 K/mm3 (1.2-3.4); LYMPH % 16.4 % (20.0-51.0); MEAN CELL VOLUME 87 fl (80.0-100.0); MEAN CORPUSCULAR HEMOGLOBIN 28 pg (27-31); MEAN CORPUSCULAR HGB CONC 32 g/dl (33.0-37.0); MEAN PLATELET VOLUME 9.6 fl (7.4-10.4); MONO # 0.7 K/mm3 (0.1-0.6); PLATELET COUNT 237 K/mm3 (130-400); RED BLOOD COUNT 3.04 M/mm3 (4.20-5.60); REDCELL DISTRIBUTION WIDTH-CV 14.5 % (11.5-14.5)
[2022-04-26 10:56] LABS: ALBUMIN 3.8 gm/dL (3.4-4.8); BILIRUBIN,TOTAL 0.5 mg/dL (0.2-1.2); CALCIUM 8.9 mg/dL (8.4-10.2); CREATININE, serum 6.45 mg/dL (0.72-1.25); PHOSPHOROUS 5.3 mg/dL (2.3-4.7); POTASSIUM 4.8 mmol/L (3.5-4.5); TOTAL PROTEIN 6.5 gm/dL (6.2-8.1)
--- NOTE | 2022-04-26 15:45 | NUR ---
PATIENT IN DIALYSIS
--- NOTE | 2022-04-26 16:09 | NUR ---
Water Conservation Specialist met with Patient at bedside to conduct Care Managment Assessment and discuss discharge planning. Patient lives in [place], [place] with his , Tammi P: [phone] and his daighter, Tanesha. Patient is established with PCP Dr. Rosales and is covered by Medicare AB as well as [employer] for supplumental coverage. Patient utilizes [facility] for Rx service. Patient utilizes nocturnal BIPAP at night. Patient denies the use of DME and [facility] prir to admission. Patient declines AD at this time. Patient intends on discharging home when medically stable. Discharge Plan: Home
--- NOTE | 2022-04-26 17:50 | NUR ---
PATIENT BACK FROM DIALYSIS. VITALS STABLE. PATIETN REQUIRING 2LNC TO SAT 91 PERCENT. ATTEMPTED TO WEAN AND PATIENT DROPPED TO 87% ON 1LNC
--- NOTE | 2022-04-26 18:00 | NUR ---
PATIENTS CALLED THAT HD CATH DRESSING CAME OFF. LUMENS DRESSING WAS OFF. BRAID CUTTER NEAR BY AND REPLACED DRESSING.
--- NOTE | 2022-04-26 18:46 | NUR ---
RECEIVED CALL FROM RN STATING THAT SHE RECENTLY PLACED A BIPAP ORDER. RN PRESENTED TO ROOM WHILE ON PHONE TO ASK IF HE KNEW SETTINGS. PT DOES NOT KNOW SETTINGS.
[2022-04-26 22:38] LABS: HEPATITIS B SURFACE ANTIBODY <2.0 (()); HEPATITIS B SURFACE ANTIGEN Negative (Negative); HEPATITIS C VIRUS ANTIBODY Negative (Negative)
--- NOTE | 2022-04-26 23:20 | NUR ---
2033 PRESENTED TO PATIENTS ROOM TO ASK QUESTIONS RELATING TO HOME BIPAP USE. PT WAS SLEEPING AND WEARING 2LNC. PT AWAKENED. STATED MY NAME AND THAT I WAS FROM THE RESPIRATORY CARE DEPT. ASKED PT ABOUT HIM WEARING HOSPITAL OWNED V60 FOR THE NIGHT. ALSO ASKED THAT IF HE PREFERRED HE COULD HAVE HIS HOME UNIT BROUGHT IN TOMORROW FOR HIM TO USE. PT DID NOT WANT TO USE HOSPITAL V60 BIPAP AND STATED SOMEONE WOULD BRING HIS TOMORROW.
[2022-04-27 03:53] VITALS: BP 143/54; PULSE 51; TEMP 98.1
[2022-04-27 06:26] LABS: BASO % 0.5 % (0.0-2.0); EOS # 0.3 K/mm3 (0.0-0.7); EOS % 4.3 % (0.0-4.0); GRAN # 4.1 K/mm3 (1.4-6.5); GRAN % 67.8 % (42.2-75.2); HEMATOCRIT 25.4 % (42.0-52.0); HEMOGLOBIN 7.6 g/dl (13.5-18.0); LYMPH # 0.9 K/mm3 (1.2-3.4); LYMPH % 15.2 % (20.0-51.0); MEAN CELL VOLUME 90 fl (80.0-100.0); MEAN CORPUSCULAR HEMOGLOBIN 27 pg (27-31); MEAN CORPUSCULAR HGB CONC 30 g/dl (33.0-37.0); MEAN PLATELET VOLUME 10.2 fl (7.4-10.4); MONO # 0.7 K/mm3 (0.1-0.6); MONO % 11.9 % (1.7-9.3); PLATELET COUNT 191 K/mm3 (130-400); RED BLOOD COUNT 2.81 M/mm3 (4.20-5.60); REDCELL DISTRIBUTION WIDTH-CV 14.3 % (11.5-14.5)
--- NOTE | 2022-04-27 06:26 | NUR ---
pt requiring 2L O2 per NC, baseline is RA. he uses bipap @ home every noc, did not bring to hospital. HS bgm 163, no SSI ordered, pt voids standing @ bedside, needs assistance d/t blindness and also having episodes of dizziness. RAC INT patent/secure. dressing to rt chest HD cath CDI.
[2022-04-27 06:36] LABS: ALBUMIN 3.3 gm/dL (3.4-4.8); CALCIUM 8.7 mg/dL (8.4-10.2); CREATININE, serum 4.85 mg/dL (0.72-1.25); PHOSPHOROUS 5.6 mg/dL (2.3-4.7); POTASSIUM 5.1 mmol/L (3.5-4.5)
[2022-04-27 07:04] VITALS: BP 144/57; PULSE 55; TEMP 97.6
--- NOTE | 2022-04-27 09:14 | NUR ---
Initial visit; Patient thanked Nursing Agency Manager for stopping and offering God's blessings. "Pradeep" is Buddhist and also blind. He laughed when Nursing Agency Manager mentioned his 'Jeremy Rawls' t-shirt and mentioned it would be fine if she came back to visit, he just has trouble remembering people. Nursing Agency Manager told him she would remind him who she is and why she is here. Nursing Agency Manager wished Pradeep well.
--- NOTE | 2022-04-27 09:51 | NUR ---
PATIENT IS AXOX4. BLIND BILATERALLY BUT HAS SOME PERIPHERAL VISION ON THE LEFT EYE. PATIENT CAN STAND WITH ASSISTANCE AND USE URINAL W/ ASSIST. PATIENT RAC HAS BEEN LEAKING ON AND OFF WITH BLOODY DRAINAGE. IV DC'D DUE TO CONSTANT DRAINING. HELD PRESSURE FOR 10 MINUTES AND COVERED WITH GAUZE AND WRAP. PATIENT IS PLEASANT, USES CALL LIGHT, AND HAS NOT COMPLAINED OF ANY PAIN. LEFT FOR DIALYSIS AT 0830. VSS
[2022-04-27 11:45] VITALS: BP 115/44
[2022-04-27 16:08] VITALS: BP 114/50; PULSE 53; TEMP 98.3
[2022-04-27 19:46] VITALS: BP 113/54; PULSE 52; TEMP 98.9
--- NOTE | 2022-04-27 20:09 | NUR ---
Patient assessed at this time, head to toe assessment done, see shift assessment, denies pain, on oxygen at 2LPM via nasal prong, complained of indigestion, TUMS given per request, denies further needs, call light and personal items within reach, will continue to monitor.
[2022-04-27 23:52] VITALS: BP 117/52; PULSE 55; TEMP 97.8
[2022-04-28 03:13] VITALS: BP 128/43; PULSE 56; TEMP 98.5
[2022-04-28 05:42] LABS: BASO % 0.5 % (0.0-2.0); EOS # 0.4 K/mm3 (0.0-0.7); EOS % 4.8 % (0.0-4.0); GRAN # 5.2 K/mm3 (1.4-6.5); GRAN % 67.1 % (42.2-75.2); LYMPH # 1.2 K/mm3 (1.2-3.4); LYMPH % 15.8 % (20.0-51.0); MEAN CELL VOLUME 88 fl (80.0-100.0); MEAN CORPUSCULAR HGB CONC 31 g/dl (33.0-37.0); MEAN PLATELET VOLUME 9.9 fl (7.4-10.4); MONO # 0.9 K/mm3 (0.1-0.6); MONO % 11.5 % (1.7-9.3); PLATELET COUNT 196 K/mm3 (130-400); RED BLOOD COUNT 2.93 M/mm3 (4.20-5.60); REDCELL DISTRIBUTION WIDTH-CV 14.2 % (11.5-14.5)
[2022-04-28 05:43] LABS: HEMATOCRIT 25.7 % (42.0-52.0); HEMOGLOBIN 7.9 g/dl (13.5-18.0); MEAN CORPUSCULAR HEMOGLOBIN 27 pg (27-31)
[2022-04-28 05:53] LABS: ALBUMIN 3.4 gm/dL (3.4-4.8); CALCIUM 8.9 mg/dL (8.4-10.2); CREATININE, serum 3.77 mg/dL (0.72-1.25); PHOSPHOROUS 5.4 mg/dL (2.3-4.7); POTASSIUM 4.6 mmol/L (3.5-4.5)
--- NOTE | 2022-04-28 06:36 | NUR ---
Patient had an uneventful night, denies need at this time, will report off to dayshift nurse.
--- NOTE | 2022-04-28 07:24 | NUR ---
Pt awake and alert upon inspection this AM. States he is a little dizzy when he gets up and walks, pt reminded to call nursing staff before standing. No complaints of pain, states he is ready for breakfast. Bed in lowest position, call light within reach.
[2022-04-28 07:51] VITALS: BP 150/50; PULSE 57; TEMP 98.8
--- NOTE | 2022-04-28 09:24 | NUR ---
Pt out of room to dialysis at 0900
[2022-04-28 11:04] VITALS: BP 148/65; PULSE 60; TEMP 98.2
[2022-04-28] MEDS ORDERED: VITAMIN E 400 U4001 PO (11:56)
[2022-04-28] MEDS ORDERED: B1 PO (11:56)
[2022-04-28] MEDS ORDERED: B12 PO (11:56)
[2022-04-28] MEDS ORDERED: VTAMINC250TA PO (11:56)
[2022-04-28] MEDS ORDERED: FOLIC ACID 11 MG/TA1 PO (11:56)
--- NOTE | 2022-04-28 12:49 | NUR ---
Pt in room after dialysis without nasal canula on. O2 sat at 92% on room air. Pt states he has oxygen at home that he wears when he needs.
--- NOTE | 2022-04-28 14:11 | NUR ---
Patient discharged to home, picked up by . Patient and educated on medications and discharge instructions, as well as dialysis appointments and dialysis catheter care. Pt and verbalized understanding. All belongings sent home with patient. Pt assisted into car safely.
== END 2022-04-28 14:12 | disposition home or self-care (01) | DRG 673 ==
LOC: MEDICAL 06:57
PROVIDERS: Registered Nurse; ADMIT Internal Medicine Nephrology
PROC: 0JH63XZ Insertion of Tunneled Vascular Access Device into Chest Subcutaneous Tissue and Fascia, Percutaneous Approach (ICD-10-PCS; principal; 2022-04-26)
PROC: 02H633Z Insertion of Infusion Device into Right Atrium, Percutaneous Approach (ICD-10-PCS; 2022-04-26)
DX: I12.0 Hypertensive chronic kidney disease with stage 5 chronic kidney disease or end stage renal disease (principal); N18.6 End stage renal disease; I48.92 Unspecified atrial flutter; N17.9 Acute kidney failure, unspecified; E87.70 Fluid overload, unspecified; E87.5 Hyperkalemia; E11.22 Type 2 diabetes mellitus with diabetic chronic kidney disease; I48.91 Unspecified atrial fibrillation; E66.9 Obesity, unspecified; K21.9 Gastro-esophageal reflux disease without esophagitis; E78.5 Hyperlipidemia, unspecified; J44.9 Chronic obstructive pulmonary disease, unspecified; G47.33 Obstructive sleep apnea (adult) (pediatric); E03.9 Hypothyroidism, unspecified; Z79.01 Long term (current) use of anticoagulants; Z79.82 Long term (current) use of aspirin; Z79.4 Long term (current) use of insulin; Z90.49 Acquired absence of other specified parts of digestive tract; Z99.2 Dependence on renal dialysis; Z90.89 Acquired absence of other organs; Z88.1 Allergy status to other antibiotic agents; Z88.8 Allergy status to other drugs, medicaments and biological substances; Z91.81 History of falling; Z68.37 Body mass index [BMI] 37.0-37.9, adult
CPT/HCPCS: J0690; J1170; J1644; J1756; J1815; J2250; J3010; J7050